=== PATIENT | female | born 1960 | race Caucasian/White ===

== ENCOUNTER 2016-12-21 03:53 | Inpatient (IN) | payer OTHER ==
[2016-12-21] VITALS (22 sets, daily range): BP systolic 66–151; BP diastolic 39–98; PULSE 66–118; RESP 12–25; TEMP 98.1–99; O2SAT 93–100
[~2016-12-21] VITALS: Ht 160 cm; Wt 70.1 kg
[2016-12-21] MEDS ORDERED: SUBO2MIS SL (04:18)
[2016-12-21] MEDS ORDERED: LISI-515 PO (04:18)
[2016-12-21] MEDS ORDERED: SODIUM CHLOR 0.9% 1000 ML INJ 1,000 ML IV ONE ×2 (04:30→04:45)
--- NOTE | 2016-12-21 04:39 | PD ---
HPI Chief Complaint: Chest Pain Time Seen by Provider: 04:21 Travel History International Travel<30 days: No Contact w/Intl Traveler<30days: No Traveled to known affect area: No History of Present Illness HPI The patient is a 56 year old female who presents to the [facility] emergency department with a history of reportedly feeling ill over the last 2 days since she ran out of Suboxone. She reports that she went to her doctor yesterday in the daytime and was given a refill. She reports that she started back on her first tablet yesterday. She reports that she had generalized body aches prior to this and nausea with decreased by mouth intake. She denies having any vomiting. She reports that she's been constipated. She reports that she did have a very hard stool that was painful yesterday. She denies having any known blood in her stool or black or tarry stools. She reports that she does drink alcohol on a daily basis, 2 glasses of wine per day. She reports that prior to arrival she began to have generalized abdominal pain and chest pain. Upon ambulance services arrival the patient's blood pressure was noted to be low, 60s over 40s. The patient was given 400 mL of normal saline en route to this facility and her blood pressure came up to 137/94. The patient reports that she does have a history of hypertension and is on lisinopril. Ambulance services reportedly gave her Zofran 4 mg IV prior to arrival for nausea. On review of systems, the patient denies having any known fevers, however she has had chills. She denies having any recent cough, congestion, neck pain, urinary symptoms, or neurologic symptoms. [facility] Past Medical History Narrative Medical The patient's past medical history is significant for hypertension, prior history of opiate abuse, currently on Suboxone for the last 6 years, history of daily alcohol intake. Diminished Hearing: No Hypertension: Yes Tetanus Vaccination: Unknown Influenza Vaccination: No Past Surgical History Narrative Surgical The patient's past surgical history is significant for an appendectomy, C- section, hernia repair. Appendectomy: Yes Section: Yes (X1) Social History Alcohol Use: Yes (DAILY, HAD "A COUPLE GLASSES" OF WINE TONIGHT) Tobacco Use: No Substance Use: No Allergies-Medications (Allergen,Severity, Reaction): Coded Allergies: No Known Allergies (Unverified , 12/21/16) Reported Meds & Prescriptions Reported Meds & Active Scripts Active Reported Lisinopril 20 Mg Tab 20 Mg PO DAILY Suboxone Sublingual Film (Buprenorphine-Naloxone Sublingual Film) 2-0.5 Mg Film 1 Film SL Unique ID number required: Review of Systems Except as stated in HPI: all other systems reviewed are Neg General / Constitutional: No: Fever Eyes: No: Visual changes HENT: No: Headaches Cardiovascular: Positive: Chest Pain or Discomfort Respiratory: No: Shortness of Breath Gastrointestinal: Positive: Nausea, Abdominal Pain, Constipation, Changes in Bowel Habits, Loss of Appetite, No: Vomiting, Diarrhea, Hematemesis, Hematochezia Genitourinary: No: Dysuria Musculoskeletal: No: Pain Skin: No Rash Neurologic: No: Weakness Psychiatric: No: Depression Endocrine: No: Polydipsia Hematologic/Lymphatic: No: Easy Bruising Physical Exam Narrative General: The patient is a well-developed well-nourished female, uncomfortable appearing on arrival reporting generalized abdominal pain. Head and Neck exam: Head is normocephalic atraumatic. Eyes: EOMI, pupils are equal round and reactive to light. Nose: Midline septum with pink mucous membranes Mouth: Dentition unremarkable. Moist mucus membranes. Posterior oropharynx is not erythematous. No tonsillar hypertrophy. Uvula midline. Airway patent. Neck: No palpable lymphadenopathy. No nuchal rigidity. No thyromegaly. Cardiovascular: Sinus tachycardia in the low 100 without murmurs, gallops, or rubs. No pulse deficit to the extremities and simultaneous auscultation and palpation of the radial artery. Lungs: Clear to auscultation bilaterally. No wheezes, rhonchi, or rales. Abdomen: Soft, with mild distention and tenderness on palpation along the suprapubic and left lower quadrant of the abdomen. No other tenderness on palpation of the other quadrants of the abdomen. No guarding, rebound, or rigidity. Decreased bowel sounds are audible. No tenderness on palpation of McBurney's point. Negative Slater sign. Extremities: No clubbing, cyanosis, or edema. 2+ pulses in all 4 extremities. No calf tenderness on palpation. Back: No spinous process tenderness to palpation. No costovertebral angle tenderness to palpation. Neurologic Exam: Grossly nonfocal. Skin Exam: No rash noted. Intact skin that is warm and dry. Data Data Last Documented VS Vital Signs Date Time Temp Pulse Resp B/P Pulse Ox O2 Delivery O2 Flow Rate FiO2 12/21/16 06:00 118 14 118/76 97 Nasal Cannula 2 12/21/16 03:55 98.1 Orders Electrocardiogram (12/21/16 04:22) Complete Blood Count With Diff (12/21/16 04:22) Comprehensive Metabolic Panel (12/21/16 04:22) Creatine Kinase (Cpk) (12/21/16 04:22) Ckmb (Isoenzyme) Profile (12/21/16 04:22) Troponin I (12/21/16 04:22) B-Type Natriuretic Peptide (12/21/16 04:22) Prothrombin Time / Inr (Pt) (12/21/16:22) Act Partial Throm Time (Ptt) (12/21/16 04:22) Blood Culture (12/21/16 04:22) C-Reactive Protein (Crp) (12/21/16 04:22) Lipase (12/21/16 04:22) Urinalysis - C+S If Indicated (12/21/16 04:22) Magnesium (Mg) (12/21/16 04:22) Thyroid Stimulating Hormone (12/21/16 04:22) Ct Abd/Pel W Iv Contrast(Rout) (12/21/16 04:22) Iv Access Insert/Monitor (12/21/16 04:22) Ecg Monitoring (12/21/16 04:22) Oximetry (12/21/16 04:22) Ed Urine Pregnancytest Poc (12/21/16 04:22) Drug Screen, Random Urine (12/21/16 04:22) Alcohol (Ethanol) (12/21/16 04:22) Lactic Acid Sepsis Protocol (12/21/16 04:22) Chest, Single Ap (12/21/16 04:22) Sodium Chlor 0.9% 1000 Ml Inj (Ns 1000 M (12/21/16 04:30) Sodium Chlor 0.9% 1000 Ml Inj (Ns 1000 M (12/21/16 04:45) Ondansetron Inj (Zofran Inj) (12/21/16 05:15) Ondansetron Inj (Zofran Inj) (12/21/16 05:03) CKMB (12/21/16 04:30) CKMB% (12/21/16 04:30) Potassium Chloride Eff (K-Lyte Cl Eff) (12/21/16 05:45) Thiamine Inj (Thiamine Inj) (12/21/16 05:45) Ns + Kcl 20 Meq Inj (Ns + Kcl 20 Meq Inj (12/21/16 05:45) Magnesium Sulfate 1 Gm Premix (Magnesium (12/21/16 05:45) Urinary Catheter Insert/Apply (12/21/16 05:40) Iohexol 350 Inj (Omnipaque 350 Inj) (12/21/16 05:55) Vancomycin Inj (Vancomycin Inj) (12/21/16 06:30) Piperacil-Tazo 3.375 Gm Premix (Zosyn 3. (12/21/16 06:30) Potassium Chlor 20 Meq Premix (Kcl 20 Me (12/21/16 06:30) Sodium Chlorid 0.9% 500 Ml Inj (Ns 500 M (12/21/16 06:30) Admit Order (Ed Use Only) (12/21/16 06:35) Labs Laboratory Tests Test 12/21/16 12/21/16 04:30 04:50 White Blood Count 6.4 TH/MM3 Red Blood Count 3.73 MIL/MM3 Hemoglobin 13.2 GM/DL Hematocrit 39.7 % Mean Corpuscular Volume 106.5 FL Mean Corpuscular Hemoglobin 35.3 PG Mean Corpuscular Hemoglobin 33.2 % Concent Red Cell Distribution Width 15.4 % Platelet Count 133 TH/MM3 Mean Platelet Volume 7.2 FL Neutrophils (%) (Auto) 78.2 % Lymphocytes (%) (Auto) 19.3 % Monocytes (%) (Auto) 2.3 % Eosinophils (%) (Auto) 0.1 % Basophils (%) (Auto) 0.1 % Neutrophils # (Auto) 5.0 TH/MM3 Lymphocytes # (Auto) 1.2 TH/MM3 Monocytes # (Auto) 0.1 TH/MM3 Eosinophils # (Auto) 0.0 TH/MM3 Basophils # (Auto) 0.0 TH/MM3 CBC Comment DIFF FINAL Differential Comment Prothrombin Time 10.7 SEC Prothromb Time International 1.0 RATIO Ratio Activated Partial 19.5 SEC Thromboplast Time Sodium Level 146 MEQ/L Potassium Level 2.9 MEQ/L Chloride Level 106 MEQ/L Carbon Dioxide Level 24.8 MEQ/L Anion Gap 15 MEQ/L Blood Urea Nitrogen 11 MG/DL Creatinine 0.83 MG/DL Estimat Glomerular Filtration 71 ML/MIN Rate Random Glucose 171 MG/DL Lactic Acid Level 4.4 mmol/L Calcium Level 8.6 MG/DL Magnesium Level 2.1 MG/DL Total Bilirubin 1.3 MG/DL Aspartate Amino Transf 149 U/L (AST/SGOT) Alanine Aminotransferase 89 U/L (ALT/SGPT) Alkaline Phosphatase 75 U/L Total Creatine Kinase 156 U/L Creatine Kinase MB 2.6 NG/ML Troponin I LESS THAN 0.02 NG/ML C-Reactive Protein 0.31 MG/DL B-Type Natriuretic Peptide 30 PG/ML Total Protein 6.7 GM/DL Albumin 3.3 GM/DL Lipase 253 U/L Thyroid Stimulating Hormone 1.460 uIU/ML 3rd Gen Ethyl Alcohol Level 319 MG/DL Urine Color YELLOW Urine Turbidity CLEAR Urine pH 5.5 Urine Specific Seymour 1.017 Urine Protein 100 mg/dL Urine Glucose (UA) NEG mg/dL Urine Ketones NEG mg/dL Urine Occult Blood TRACE Urine Nitrite NEG Urine Bilirubin NEG Urine Urobilinogen 2.0 MG/DL Urine Leukocyte Esterase NEG Urine RBC LESS THAN 1 /hpf Urine WBC 1 /hpf Urine Squamous Epithelial <1 /hpf Cells Urine Bacteria FEW /hpf Urine Hyaline Casts 4 /lpf Urine Mucus FEW /lpf Microscopic Urinalysis Comment CULT NOT INDICATED Urine Opiates Screen NEG Urine Barbiturates Screen NEG Urine Amphetamines Screen NEG Urine Benzodiazepines Screen NEG Urine Cocaine Screen NEG Urine Cannabinoids Screen NEG MDM Medical Decision Making Medical Screen Exam Complete: Yes Emergency Medical Condition: Yes Medical Record Reviewed: Yes Interpretation(s) Last Impressions Chest X-Ray 12/21/16421 Signed Impressions: Service Date/Time: Wednesday, December 21, 2016 04:21 - CONCLUSION: No evidence of acute cardiopulmonary disease. Van Mondragon MD Abdomen/Pelvis CT 12/21/16421 Signed Impressions: Service Date/Time: Wednesday, December 21, 2016 05:42 - CONCLUSION: 1. Nonspecific mild long segment colitis. No abscess or obstruction. 2. Fatty liver. Van Mondragon MD Differential Diagnosis Ischemic bowel, versus perforated bowel, versus perforated ulcer, versus sepsis , versus GI bleed Narrative Course During the course of the patients emergency department visit, the patients history, examination, and differential diagnosis were reviewed with the patient. The patient had 2 large-bore IV[address] place and bilateral upper extremities. The patient was started on normal saline wide open when her blood pressure again dropped to 69/40. The patient had an ECG done on arrival that shows a sinus tachycardia rate of 104, no acute ST segment elevation or depression, QRS duration is 99 ms, QTC 453 ms. The patients laboratory studies were reviewed and remarkable for white count is 6.4, hemoglobin 13.2, platelets 133 with 78.2 neutrophils, CMP is remarkable for sodium of 146, potassium 2.9 which was attempted to be supplemented orally, however the patient used to drink the K-Lyte after tasting it, therefore she was given 20 mEq over 2 hours. The patient was additionally after 2 L of normal saline was administered wide open given normal saline at 125 an hour with 20 mEq of potassium chloride for supplementation. Glucose 171, total bilirubin 1.3, AST 149, ALT 89 this is a pattern suspicious for chronic alcohol- related hepatitis, CPK 156, troponin I less than 0.02, C-reactive protein 0.31, BNP is 30, lipase 253, TSH 1.46. Lactic acid is 4.4 this is suspected to be related to dehydration versus sepsis of undetermined origin, versus ischemic bowel, PT 10.7, PTT 19.5. Urine drug screen is negative, alcohol level CCCXIX. Urinalysis shows 100 protein, trace occult blood, few squamous epithelial cells, otherwise unremarkable Radiology studies were reviewed and remarkable for the chest x-ray that shows no acute abnormality. CT scan of the abdomen and pelvis shows a nonspecific mild long segment colitis, no abscess or obstruction, fatty liver. The patients results were discussed with the patient, including the plan of care. I explained that further testing and/ or monitoring is indicated based on the patients history, examination, and/ or laboratory findings. Therefore, I recommended admission for additional evaluation. The patient expressed understanding and was agreeable with this plan. The patient was admitted to the hospital in guarded condition and sent to a bed under the care of the snake charmer service. Critical Care Narrative Aggregate critical care time was 40 minutes. Time to perform other separately billable procedures was not included in the critical care time. My time did not include minutes spent treating any other patients simultaneously or on activities that did not directly contribute to the patient's treatment. The services I provided to this patient were to treat and/or prevent clinically significant deterioration that could result in: Respiratory failure related to fluid overload, versus cardiovascular collapse related to sepsis I provided critical care services requiring my management, as noted below: Chart data review, documentation time, medication orders and management, vital sign assessments/reviewing monitor data, ordering and reviewing lab tests, ordering and interpreting/reviewing x-rays and diagnostic studies, care of the patient and discussion of the patient with the admitting physicians. Sepsis Criteria SIRS Criteria (2 or more): Heart rate over 90, RR > 20 or PaCO2 < 32 Severe Sepsis (+one): Lactate >2 Septic Shock Criteria: Lactic acid >=4 Physician Communication Physician Communication The patient's case was discussed with Dr. Casey who did agree to admit the patient for further evaluation and treatment at this time. Diagnosis Primary Impression: Colitis Additional Impression: Hypotension Qualified Code: I95.9 - Hypotension, unspecified hypotension type Admitting Information Admitting Physician Requests: Admit Bertha Glass MD Dec 21, 2016 04:39
[2016-12-21 04:57] LABS: BASOPHIL % 0.1 % (0.0-2.0); EOSINOPHIL % 0.1 % (0.0-4.0); HEMATOCRIT 39.7 % (35.0-46.0); HEMO FLAGS DIFF FINAL; LYMPH % 19.3 % (9.0-44.0); LYMPHOCYTE # 1.2 TH/MM3 (1.0-4.8); MEAN CELL VOLUME 106.5 FL (80.0-100.0); MEAN CORPUSCULAR HEMOGLOBIN 35.3 PG (27.0-34.0); MEAN CORPUSCULAR HGB CONC 33.2 % (32.0-36.0); MONO % 2.3 % (0.0-8.0); NEUT % 78.2 % (16.0-70.0); PLATELET COUNT 133 TH/MM3 (150-450); RED BLOOD COUNT 3.73 MIL/MM3 (4.00-5.30); RED CELL DISTRIBUTION WIDTH 15.4 % (11.6-17.2); WHITE BLOOD COUNT 6.4 TH/MM3 (4.0-11.0)
--- NOTE | 2016-12-21 05:02 | RADRPT ---
EXAM DATE/TIME: 12/21/2016 04:21 [facility] COMPARISON: No previous studies available for comparison. INDICATIONS : Chest pain. MEDICAL HISTORY : None. SURGICAL HISTORY : None. ENCOUNTER: Initial ACUITY: 1 day PAIN SCORE: 0/10 LOCATION: Bilateral chest FINDINGS: A single view of the chest demonstrates the lungs to be symmetrically aerated without evidence of mas s, infiltrate or effusion. The cardiomediastinal contours are unremarkable. Osseous structures are intact. CONCLUSION: No evidence of acute cardiopulmonary disease. Van Mondragon MD on December 21, 2016 at 5:01 Board Certified Radiologist. This report was verified electronically.
[2016-12-21] MEDS ORDERED: ONDANSETRON HCL 4 MG/2 ML VIAL ONE (05:03)
[2016-12-21] MEDS ORDERED: ONDANSETRON HCL 4 MG/2 ML VIAL IV ONE (05:15)
[2016-12-21 05:20] LABS: APTT (PATIENT) 19.5 SEC (24.3-30.1); PROTHROMBIN TIME - PATIENT 10.7 SEC (9.8-11.6)
[2016-12-21 05:27] LABS: ALKALINE PHOSPHATASE 75 U/L (45-117); ALT (GPT) 89 U/L (10-53); ANION GAP 15 MEQ/L (5-15); AST (GOT) 149 U/L (15-37); BICARBONATE 24.8 MEQ/L (21.0-32.0); BLOOD UREA NITROGEN 11 MG/DL (7-18); CHLORIDE 106 MEQ/L (98-107); CREATINE KINASE 156 U/L (26-192); GLOMERULAR FILTRATION RATE 71 ML/MIN (>89); MAGNESIUM 2.1 MG/DL (1.5-2.5); SODIUM (NA) 146 MEQ/L (136-145); TOTAL BILIRUBIN ADULT 1.3 MG/DL (0.2-1.0)
[2016-12-21 05:31] LABS: POTASSIUM 2.9 MEQ/L (3.5-5.1)
[2016-12-21 05:44] LABS: CKMB 2.6 NG/ML (0.5-3.6)
[2016-12-21 05:45] LABS: AMPHETAMINE, URINE NEG (NEG); BARBITURATES, URINE NEG (NEG); COCAINE, URINE NEG (NEG)
[2016-12-21] MEDS ORDERED: THIAMINE INJ 100 MG in SODIUM CHLORIDE 0.9% INJ 100 ML IV ONE (05:45)
[2016-12-21] MEDS ORDERED: POTASSIUM CHLORIDE 25 MEQ EFFERVESCENT TAB PO ONE (05:45)
[2016-12-21] MEDS ORDERED: MAGNESIUM SULFATE 1 GM PREMIX 100 ML IV ONE (05:45)
[2016-12-21 05:50] LABS: BACTERIA, URINE FEW /hpf; BLOOD, URINE TRACE (NEG); COMMENT (UR) CULT NOT INDICATED; CULTURE IF INDICATED CULT NOT INDICATED; GLUCOSE,URINE NEG (NEG); HYALINE CAST, URINE 4 /lpf (RARE); KETONE, URINE NEG (NEG); MUCUS URINE FEW /lpf (OCC); NITRITE,URINE NEG (NEG); PH, URINE 5.5 (5.0-8.5); SQUAMOUS EPITHELIAL CELL URINE <1 /hpf (0-5); URINE COLOR YELLOW (YELLW/STRAW)
[2016-12-21] MEDS ORDERED: IOHEXOL 350 MG/ML 10 ML VIAL (for RAD DIAG) IV ONE (05:55)
[2016-12-21] MEDS: NS + KCL 20 MEQ INJ 1,000 ML IV SCH ×3 (06:01→21:13)
--- NOTE | 2016-12-21 06:17 | RADRPT ---
EXAM DATE/TIME: 12/21/2016 05:42 [facility] COMPARISON: No previous studies available for comparison. INDICATIONS : Abdomen pain. Possible obstruction. IV CONTRAST: 70 cc Omnipaque 350 (iohexol) IV ORAL CONTRAST: No oral contrast ingested. RADIATION DOSE: 9.95 CTDIvol (mGy) MEDICAL HISTORY : Hypertension. SURGICAL HISTORY : Appendectomy. section. ENCOUNTER: Initial ACUITY: 1 day PAIN SCALE: 10/10 LOCATION: Bilateral abdomen TECHNIQUE: Volumetric scanning of the abdomen and pelvis was performed. Using automated exposure control and ad justment of the mA and/or kV according to patient size, radiation dose was kept as low as reasonably achievable to obtain optimal diagnostic quality images. DICOM format image data is available electro nically for review and comparison. FINDINGS: LOWER LUNGS: Trace right base atelectasis noted. LIVER: The liver is fatty infiltrated. CT appearance of the gallbladder within normal limits. SPLEEN: Normal size without lesion. PANCREAS: Within normal limits. KIDNEYS: Normal in size and shape. There is no mass, stone or hydronephrosis. ADRENAL GLANDS: Within normal limits. VASCULAR: There is no aortic aneurysm. BOWEL/MESENTERY: There is mild colitis, spares the rectum but otherwise diffuse. No obstruction or high-grade inflamma tory changes are demonstrated. ABDOMINAL WALL: Within normal limits. RETROPERITONEUM: There is no lymphadenopathy. BLADDER: No wall thickening or mass. REPRODUCTIVE: Within normal limits. INGUINAL: There is no lymphadenopathy or hernia. MUSCULOSKELETAL: No acute bony abnormality demonstrated. CONCLUSION: 1. Nonspecific mild long segment colitis. No abscess or obstruction. 2. Fatty liver. Van Mondragon MD on December 21, 2016 at 6:13 Board Certified Radiologist. This report was verified electronically.
[2016-12-21] MEDS ORDERED: VANCOMYCIN INJ 1,000 MG in SODIUM CHLOR 0.9% 250 ML INJ 250 ML IV ONE (06:30)
[2016-12-21] MEDS ORDERED: POTASSIUM CHLOR 20 MEQ PREMIX 100 ML IV ONE (06:30)
[2016-12-21] MEDS ORDERED: SODIUM CHLORID 0.9% 500 ML INJ 500 ML IV ONE (06:30)
[2016-12-21] MEDS ORDERED: PIPERACIL-TAZO 3.375 GM PREMIX 50 ML IV ONE (06:30)
[2016-12-21 06:38] LABS: LACTIC ACID GHOST NOT REPORTABLE
[2016-12-21] MEDS ORDERED: LACTATED RINGER'S 1000 ML INJ 1,000 ML IV ONE ×2 (06:45→10:30)
[2016-12-21] MEDS ORDERED: SODIUM PHOSPHATE INJ 30 MMOL in SODIUM CHLOR 0.9% 250 ML INJ 240 ML IV PRN (06:45)
[2016-12-21] MEDS ORDERED: POTASSIUM PHOSPHATE MONOBASIC 500 MG TAB PO/TUBE PRN (06:45)
[2016-12-21] MEDS ORDERED: DEXTROSE 50% IN WATER 50 ML VIAL(D50) IV PUSH PRN (06:45)
[2016-12-21] MEDS ORDERED: MAGNESIUM OXIDE 400 MG TAB PO PRN (06:45)
[2016-12-21] MEDS ORDERED: MISCELLANEOUS NURSING INFORMATION XX SCH (06:45)
[2016-12-21] MEDS ORDERED: POTASSIUM CHLOR 20 MEQ PREMIX 100 ML IV PRN ×2 (06:45)
[2016-12-21] MEDS ORDERED: MAGNESIUM SULFATE INJ 4 GM in SODIUM CHLORIDE 0.9% INJ 92 ML IV PRN (06:45)
[2016-12-21] MEDS ORDERED: CHLORHEXIDINE GLUCONATE 2 % 1 PACK (2 CLOTHS) TOP PRN (06:45)
[2016-12-21] MEDS ORDERED: MAGNESIUM SULFATE INJ 2 GM in SODIUM CHLORIDE 0.9% INJ 96 ML IV PRN (06:45)
[2016-12-21] MEDS ORDERED: Vancomycin Consult Pharmacy 1 EA OTHER PRN (06:45)
[2016-12-21] MEDS ORDERED: POTASSIUM CHLOR 40 MEQ PREMIX 100 ML IV PRN ×2 (06:45)
[2016-12-21] MEDS ORDERED: POTASSIUM PHOSPHATE INJ 30 MMOL in SODIUM CHLOR 0.9% 250 ML INJ 250 ML IV PRN (06:45)
[2016-12-21] MEDS ORDERED: POTASSIUM PHOSPHATE MONOBASIC 500 MG TAB PO PRN (06:45)
[2016-12-21] MEDS ORDERED: RESP: ALBUTEROL 2.5 MG/IPRATROPIUM 0.5 MG NEB (PRN) INH (06:45)
[2016-12-21] MEDS: ONDANSETRON HCL 4 MG/2 ML VIAL IV PRN (08:05)
[2016-12-21] MEDS: HEPARIN SODIUM - SQ 10,000 UNITS/ML VIAL SQ SCH ×2 (08:50→18:02)
[2016-12-21] MEDS ORDERED: PANTOPRAZOLE SODIUM 40 MG VIAL IV SCH (09:00)
--- NOTE | 2016-12-21 09:51 | EKG ---
Date Performed: 12/21/2016 Time Performed: 04:03:37 PTAGE: 56 years EKG: SINUS TACHYCARDIA ABNORMAL RHYTHM ECG NO PREVIOUS TRACING DOCTOR: Ehsan Glass Interpretating Date/Time 12/21/2016 09:48:16
[2016-12-21] MEDS ORDERED: LORazepam 2 MG/ML VIAL IV PUSH ONE (10:30)
[2016-12-21] MEDS ORDERED: DIAZEPAM 10 MG TAB PO SCH (10:30)
[2016-12-21] MEDS: DIAZEPAM 10 MG TAB PO SCH ×2 (11:00→18:02)
[2016-12-21] MEDS: cloNIDine HCL 0.3 MG TAB PO SCH ×2 (11:14→18:02)
[2016-12-21] MEDS: INSULIN NovoLIN REGULAR SUPPLEMENTAL SCALE SQ SCH ×2 (12:00→18:00)
[2016-12-21] MEDS: metroNIDAZOLE 500 MG INJ 100 ML IV SCH ×2 (13:33→19:51)
[2016-12-21] MEDS: CEFEPIME INJ 1,000 MG in SODIUM CHLORIDE 0.9% INJ 100 ML IV SCH ×2 (13:34→22:44)
[2016-12-21] MEDS: LORazepam 2 MG/ML VIAL IV PUSH PRN ×2 (19:51→22:44)
[2016-12-21] MEDS: oxyCODONE/ACETAMINOPHEN 5 MG/325 MG TAB PO PRN (19:56)
[2016-12-21] MEDS ORDERED: MULTIVITAMIN INJ 10 ML, THIAMINE INJ 100 MG, FOLIC ACID INJ 1 MG in SODIUM CHLOR 0.45% ... IV ONE (20:45)
--- NOTE | 2016-12-21 21:00 | HHI.HP ---
[facility] Service Critical Care Medicine Primary Care Physician Non-Staff Admission Diagnosis Colitis, hypotension, alcohol intoxication Diagnosis: Chief Complaint: nausea, vomiting Travel History International Travel<30 Days: No Contact w/Intl Traveler <30 Da: No Traveled to Known Affected Are: No History of Present Illness Note: delayed note entry into EMR. patient seen and evaluated at 0700 this AM. This is a 56-year-old female who presented with a history of worsening chills, diarrhea, abdominal pain, shaking, tremors after she ran out of her Suboxone 2 days ago. She states she can't keep anything down. She does endorse having number of glasses of wine last night. Her alcohol level on admission is 319. She describes her abdominal pain is crampy, denies associated with food. Denies bright red blood per rectum, dark tarry stools, coughing up blood, vomiting of blood. She does endorse some nausea and vomiting. She endorses drinking at least 2 glasses of wine every day. She was brought in by EMS where her initial blood pressure was in the low 60s systolic. The patient was given 400 cc of normal saline where her blood pressure improved to 137/94. In the emergency department, she remained hemodynamic stable. CT of the abdomen and pelvis demonstrated question colitis. Although she endorse having diarrhea, she 's had no bowel movements while in the emergency department. I've out of the patient and she denied chest pain, shortness of breath, other associated symptoms. She did tell me that her abdominal pain and all of her symptoms feel exactly like what she feels like when she has alcohol and opiate withdrawal. She asked me if I can provide her with benzos and opiates to help with symptomatic relief. She does state that she has an appointment with an inpatient detox center to get her off these medications, and she is interested in going to the detox center straight from the hospital if possible. She denies fever, chills. She is remained afebrile with normal white count and the emergency department. Other laboratory values is notable for a lactate of 4. Review of Systems Constitutional: DENIES: Fatigue, Fever, Weight loss, Chills, Dizziness, Night Sweats Respiratory: DENIES: Cough, Wheezing, Hemoptysis, Sputum production, Shortness of breath Cardiovascular: DENIES: Chest pain, Palpitations, Syncope, Dyspnea on Exertion , PND, Lower Extremity Edema, Orthopnea Gastrointestinal: COMPLAINS OF: Abdominal pain, Constipation, Diarrhea, Nausea , Vomiting, DENIES: Black stools, Bloody stools, Difficulty Swallowing, Anorexia Musculoskeletal: DENIES: Joint pain, Muscle aches, Back pain, Neck pain Neurologic: COMPLAINS OF: Tremor, DENIES: Abnormal gait, Headache, Localized weakness, Seizures Psychiatric: COMPLAINS OF: Anxiety, Agitation, DENIES: Confusion, Mood changes , Depression Past Family Social History Allergies: Coded Allergies: No Known Allergies (Unverified , 12/21/16) Past Medical History Hypertension History of significant opiate abuse on chronic Suboxone maintenance therapy for 6 years Alcohol dependence Past Surgical History Appendectomy Hernia repair Reported Medications Lisinopril Suboxone- ran out a 3 days ago. Active Ordered Medications See MAR Family History Reviewed with the patient and found to be noncontributory to her acute illness. Social History Daily etoh use, primarily wine, denies tob. endorses daily suboxone use. Physical Exam Vital Signs Vital Signs Date Time Temp Pulse Resp B/P Pulse Ox O2 Delivery O2 Flow Rate FiO2 12/21/16 19:20 93 Nasal Cannula 3.00 12/21/16 19:03 16 12/21/16 18:00 73 12/21/16 16:00 98.9 75 12 138/86 94 12/21/16 16:00 75 12/21/16 14:00 92 12/21/16 12:06 94 Nasal Cannula 2.00 12/21/16 12:00 98.9 95 13 144/94 94 12/21/16 12:00 95 12/21/16 10:30 99.0 102 15 151/98 94 12/21/16 09:40 98 18 150/80 98 12/21/16 08:00 108 15 121/83 98 Nasal Cannula 2 12/21/16 07:30 98 Nasal Cannula 2 12/21/16 07:15 117 25 113/77 98 Nasal Cannula 2 12/21/16 06:45 115 21 117/78 100 Nasal Cannula 2 12/21/16 06:00 118 14 118/76 97 Nasal Cannula 2 12/21/16 05:30 111 19 102/69 97 Nasal Cannula 2 12/21/16 05:09 109 20 105/64 96 Nasal Cannula 12/21/16 04:45 106 19 92/49 97 Room Air 12/21/16 04:30 102 24 72/54 96 Room Air 12/21/16 04:15 108 21 66/39 94 Room Air 12/21/16 04:06 104 14 95 Room Air 12/21/16 03:55 98.1 108 14 87/56 95 Physical Exam GENERAL: Middle-aged female, sitting in bed, anxious, tremulous HEENT: Normocephalic. Atraumatic. Pupils equal, round, reactive, conjugate. Mucous membranes are dry NECK: Trachea is midline. There is no JVD. CHEST: Mildly tachypneic. On room air. CARDIOVASCULAR: Cardiac, hypertensive on my exam ABDOMEN: Soft, nontender, nondistended. No guarding. MUSCULOSKELETAL: Pulses 2+. No peripheral edema. NEUROLOGICAL: Very agitated. RASS +1. Anxious. Noted tremor at rest. Follows commands in all 4 extremities. Laboratory Laboratory Tests Test 12/21/16 12/21/16 12/21/16 12/21/16 04:30 04:50 06:40 15:25 White Blood Count 6.4 Red Blood Count 3.73 Hemoglobin 13.2 Hematocrit 39.7 Mean Corpuscular Volume 106.5 Mean Corpuscular Hemoglobin 35.3 Mean Corpuscular Hemoglobin 33.2 Concent Red Cell Distribution Width 15.4 Platelet Count 133 Mean Platelet Volume 7.2 Neutrophils (%) (Auto) 78.2 Lymphocytes (%) (Auto) 19.3 Monocytes (%) (Auto) 2.3 Eosinophils (%) (Auto) 0.1 Basophils (%) (Auto) 0.1 Neutrophils # (Auto) 5.0 Lymphocytes # (Auto) 1.2 Monocytes # (Auto) 0.1 Eosinophils # (Auto) 0.0 Basophils # (Auto) 0.0 CBC Comment DIFF FINAL Differential Comment Prothrombin Time 10.7 Prothromb Time International 1.0 Ratio Activated Partial 19.5 Thromboplast Time Sodium Level 146 Potassium Level 2.9 Chloride Level 106 Carbon Dioxide Level 24.8 Anion Gap 15 Blood Urea Nitrogen 11 Creatinine 0.83 Estimat Glomerular Filtration 71 Rate Random Glucose 171 Lactic Acid Level 4.4 3.0 0.9 Calcium Level 8.6 Magnesium Level 2.1 Total Bilirubin 1.3 Aspartate Amino Transf 149 (AST/SGOT) Alanine Aminotransferase 89 (ALT/SGPT) Alkaline Phosphatase 75 Total Creatine Kinase 156 Creatine Kinase MB 2.6 Troponin I LESS THAN 0.02 C-Reactive Protein 0.31 B-Type Natriuretic Peptide 30 Total Protein 6.7 Albumin 3.3 Lipase 253 Thyroid Stimulating Hormone 1.460 3rd Gen Ethyl Alcohol Level 319 Urine Color YELLOW Urine Turbidity CLEAR Urine pH 5.5 Urine Specific [place] 1.017 Urine Protein 100 Urine Glucose (UA) NEG Urine Ketones NEG Urine Occult Blood TRACE Urine Nitrite NEG Urine Bilirubin NEG Urine Urobilinogen 2.0 Urine Leukocyte Esterase NEG Urine RBC LESS THAN 1 Urine WBC 1 Urine Squamous Epithelial <1 Cells Urine Bacteria FEW Urine Hyaline Casts 4 Urine Mucus FEW Microscopic Urinalysis Comment CULT NOT INDICATED Urine Opiates Screen NEG Urine Barbiturates Screen NEG Urine Amphetamines Screen NEG Urine Benzodiazepines Screen NEG Urine Cocaine Screen NEG Urine Cannabinoids Screen NEG Date/Time Procedure Status Source Growth 12/21/16 04:30 Aerobic Blood Culture Received Blood Peripheral Pending 12/21/16 04:30 Anaerobic Blood Culture Received Blood Peripheral Pending Result Diagram: 12/21/1642912/21/16429 Imaging Last Impressions Chest X-Ray 12/21/16421 Signed Impressions: Service Date/Time: Wednesday, December 21, 2016 04:21 - CONCLUSION: No evidence of acute cardiopulmonary disease. Van Mondragon MD Abdomen/Pelvis CT 12/21/16421 Signed Impressions: Service Date/Time: Wednesday, December 21, 2016 05:42 - CONCLUSION: 1. Nonspecific mild long segment colitis. No abscess or obstruction. 2. Fatty liver. Van Mondragon MD Assessment and Plan Assessment and Plan Assessment: 56-year-old female with opiate dependence and alcohol dependence who presents in what appears clinically to be active opiate withdrawal and active alcohol withdrawal with delirium tremens. Certainly she could have an ulcerative colitis, we will cover her empirically with antibiotics until the concern for bacterial colitis can be ruled out. We will send C. difficile PCR. If she remains stable, she could go to a detox center in the near future. For now, given her lactic acidosis we will IV hydrate her and keep her in ICU setting for close monitoring. Plan: Severe dehydration with evidence of end-organ damage Hypovolemic Shock -- trend lactates -- 2L LR bolus x 1 now -- LR MIVF @ 150cc/hr -- likely secondary to chronic dehydration and etoh use Alcohol withdraw -- valium 10mg po q8h with taper schedule -- ativan 4mg iv x 1 -- ativan 2mg iv q15min prn for withdraw symptoms -- clonidine 0.3mg po TID Opiate Withdraw -- oxycodone 5mg po q4h scheduled Polysubstance dependence -- referral to detox facility Possible colitis -- with normal wbc count, afebrile, non-toxic appearing, unlikely, and much more likely to be substance withdraw. -- will cover with Vanc/Cefepime/Flagyl. If cultures negative at 24h, will d/c abx. regular diet as tolerated scds, SQH Dispo: admit to ICU for close monitoring s/p recent shock. Code Status Full Code Vikram Casey MD Dec 21, 2016 21:00
[2016-12-22] VITALS (14 sets, daily range): BP systolic 131–159; BP diastolic 84–110; PULSE 66–92; RESP 11–25; TEMP 97.9–98.7; O2SAT 86–96
[2016-12-22] MEDS: HEPARIN SODIUM - SQ 10,000 UNITS/ML VIAL SQ SCH ×3 (00:22→16:13)
[2016-12-22] MEDS: LORazepam 2 MG/ML VIAL IV PUSH PRN ×5 (00:47→19:46)
[2016-12-22] MEDS ORDERED: THIAMINE INJ 100 MG in SODIUM CHLORIDE 0.9% INJ 100 ML IV SCH (01:45)
[2016-12-22] MEDS: metroNIDAZOLE 500 MG INJ 100 ML IV SCH ×3 (01:58→13:47)
[2016-12-22] MEDS: cloNIDine HCL 0.3 MG TAB PO SCH ×3 (03:03→18:11)
[2016-12-22] MEDS: DIAZEPAM 10 MG TAB PO SCH ×3 (03:03→18:11)
[2016-12-22] MEDS: CHLORHEXIDINE GLUCONATE 2 % 1 PACK (2 CLOTHS) TOP SCH (03:04)
[2016-12-22 04:27] LABS: HEMATOCRIT 32.1 % (35.0-46.0); MEAN CELL VOLUME 107.7 FL (80.0-100.0); MEAN CORPUSCULAR HGB CONC 32.6 % (32.0-36.0); PLATELET COUNT 92 TH/MM3 (150-450); RED BLOOD COUNT 2.98 MIL/MM3 (4.00-5.30); RED CELL DISTRIBUTION WIDTH 15.1 % (11.6-17.2); WHITE BLOOD COUNT 4.7 TH/MM3 (4.0-11.0)
[2016-12-22 04:47] LABS: REVIEW FLAG FINAL
[2016-12-22 05:06] LABS: BICARBONATE 28.3 MEQ/L (21.0-32.0)
[2016-12-22] MEDS: NS + KCL 20 MEQ INJ 1,000 ML IV SCH (05:45)
[2016-12-22] MEDS: INSULIN NovoLIN REGULAR SUPPLEMENTAL SCALE SQ SCH ×4 (06:00→18:00)
[2016-12-22] MEDS: CEFEPIME INJ 1,000 MG in SODIUM CHLORIDE 0.9% INJ 100 ML IV SCH (06:07)
--- NOTE | 2016-12-22 14:58 | RADRPT ---
EXAM DATE/TIME: 12/22/2016 14:29 [facility] COMPARISON: CHEST SINGLE AP, December 21, 2016, 4:21. CT ABDOMEN & PELVIS W CONTRAST, December 21, 2016, 5:42. INDICATIONS : Short of breath. MEDICAL HISTORY : Hypertension. Renal calculi. SURGICAL HISTORY : section. Appendectomy. Right ankle. ENCOUNTER: ACUITY: 2 days PAIN SCORE: 0/10 LOCATION: chest FINDINGS: Mild bibasalar airspace disease, likely atelectasis. Mediastinal contours are stable. Remainder of e exam is unchanged. CONCLUSION: 1. Mild bibasilar airspace disease, likely atelectasis. Noam Romano MD on December 22, 2016 at 14:55 Board Certified Radiologist. This report was verified electronically.
[2016-12-22] MEDS ORDERED: FUROSEMIDE 20 MG/2 ML VIAL IV PUSH ONE ×2 (15:15→20:00)
--- NOTE | 2016-12-22 18:40 | HHI.CCPN ---
Subjective Remarks/Hospital Course Hospital Course: Note: delayed note entry into EMR. patient seen and evaluated at 0700 this AM. This is a 56-year-old female who presented with a history of worsening chills, diarrhea, abdominal pain, shaking, tremors after she ran out of her Suboxone 2 days ago. She states she can't keep anything down. She does endorse having number of glasses of wine last night. Her alcohol level on admission is 319. She describes her abdominal pain is crampy, denies associated with food. Denies bright red blood per rectum, dark tarry stools, coughing up blood, vomiting of blood. She does endorse some nausea and vomiting. She endorses drinking at least 2 glasses of wine every day. She was brought in by EMS where her initial blood pressure was in the low 60s systolic. The patient was given 400 cc of normal saline where her blood pressure improved to 137/94. In the emergency department, she remained hemodynamic stable. CT of the abdomen and pelvis demonstrated question colitis. Although she endorse having diarrhea, she 's had no bowel movements while in the emergency department. I've out of the patient and she denied chest pain, shortness of breath, other associated symptoms. She did tell me that her abdominal pain and all of her symptoms feel exactly like what she feels like when she has alcohol and opiate withdrawal. She asked me if I can provide her with benzos and opiates to help with symptomatic relief. She does state that she has an appointment with an inpatient detox center to get her off these medications, and she is interested in going to the detox center straight from the hospital if possible. She denies fever, chills. She is remained afebrile with normal white count and the emergency department. Other laboratory values is notable for a lactate of 4. Subjective: 12/22: delayed note entry. seen around 0700. patient doing well after starting on anti-withdraw meds. still persistently on o2 by NC. afebrile and normal wbc. unlikely to be colitis given constipation and no diarrhea or no abdominal symptoms today. patient is ready for detox if she can be weaned off o2. Objective Vital Signs Date Time Temp Pulse Resp B/P Pulse Ox O2 Delivery O2 Flow Rate FiO2 12/22/16 16:00 92 12/22/16 16:00 97.9 21 144/101 94 12/22/16 07:10 Nasal Cannula 2.00 Intake and Output 12/21/16 12/21/16 12/22/16 08:00 16:00 00:00 Intake Total 3268 ml 1500 ml Output Total 890 ml 1475 ml 150 ml Balance -890 ml 1793 ml 1350 ml Result Diagram: 12/22/16 0308 12/22/16 0308 Imaging Last Impressions Chest X-Ray 12/21/16421 Signed Impressions: Service Date/Time: Wednesday, December 21, 2016 04:21 - CONCLUSION: No evidence of acute cardiopulmonary disease. Van Mondragon MD Abdomen/Pelvis CT 12/21/16421 Signed Impressions: Service Date/Time: Wednesday, December 21, 2016 05:42 - CONCLUSION: 1. Nonspecific mild long segment colitis. No abscess or obstruction. 2. Fatty liver. Van Mondragon MD Objective Remarks GENERAL: Middle-aged female, sitting in bed, no acute distress. HEENT: Normocephalic. Atraumatic. Pupils equal, round, reactive, conjugate. Mucous membranes are moist. NECK: Trachea is midline. There is no JVD. CHEST: unlabored. equal chest rise. on 2L o2 by NC. CARDIOVASCULAR: normal rate, regular rhythm. sinus by tele. ABDOMEN: Soft, nontender, nondistended. No guarding. MUSCULOSKELETAL: Pulses 2+. No peripheral edema. NEUROLOGICAL: RASS 0. fc x 4. A/P Assessment and Plan Assessment: 56-year-old female with opiate dependence and alcohol dependence who presented in polysubstance withdraw. She is almost cleared for detox discharge, but need to evaluate and work-up her hypoxia. Plan: Severe dehydration with evidence of end-organ damage- resolved. Hypovolemic Shock- resolved. Hypoxia -- likely atelectasis vs. slight volume overload -- PA/Lat CXR -- lasix 20mg iv x 1 -- wean o2 by NC for spo2 > 90%. Alcohol withdraw -- valium 10mg po q8h with taper schedule -- ativan 2mg iv q15min prn for withdraw symptoms -- clonidine 0.3mg po TID Opiate Withdraw -- oxycodone 5mg po q4h scheduled Polysubstance dependence -- referral to detox facility. I have spoken with Dr. Sandoval and they will attempt to make a bed at [facility]. Possible colitis: unlikely. patient is without symptoms of colitis, no diarrhea or abdominal pain. no fever, leukocytosis. -- d/c abx. monitor clinically. regular diet as tolerated scds, SQH Dispo: transfer to floor. consult hospitalist services. Vikram Casey MD Dec 22, 2016 18:40
[2016-12-22] MEDS: THIAMINE INJ 100 MG in SODIUM CHLORIDE 0.9% INJ 100 ML IV SCH (19:46)
[2016-12-23] VITALS (12 sets, daily range): BP systolic 105–145; BP diastolic 80–101; PULSE 68–82; RESP 17–32; TEMP 98.2–98.9; O2SAT 83–96
[2016-12-23] MEDS: HEPARIN SODIUM - SQ 10,000 UNITS/ML VIAL SQ SCH ×4 (00:20→22:13)
[2016-12-23] MEDS: LORazepam 2 MG/ML VIAL IV PUSH PRN ×2 (00:20→03:25)
[2016-12-23] MEDS: DIAZEPAM 10 MG TAB PO SCH (03:13)
[2016-12-23] MEDS: CHLORHEXIDINE GLUCONATE 2 % 1 PACK (2 CLOTHS) TOP SCH ×2 (03:13→19:13)
[2016-12-23] MEDS: cloNIDine HCL 0.3 MG TAB PO SCH ×3 (03:13→19:25)
[2016-12-23 05:30] LABS: HEMATOCRIT 34.1 % (35.0-46.0); MEAN CELL VOLUME 105.3 FL (80.0-100.0); MEAN CORPUSCULAR HEMOGLOBIN 35.8 PG (27.0-34.0); PLATELET COUNT 99 TH/MM3 (150-450); RED BLOOD COUNT 3.24 MIL/MM3 (4.00-5.30); RED CELL DISTRIBUTION WIDTH 14.8 % (11.6-17.2)
[2016-12-23 05:42] LABS: REVIEW FLAG FINAL
[2016-12-23 05:48] LABS: BICARBONATE 27.5 MEQ/L (21.0-32.0); POTASSIUM 3.2 MEQ/L (3.5-5.1)
[2016-12-23] MEDS: INSULIN NovoLIN REGULAR SUPPLEMENTAL SCALE SQ SCH ×2 (05:54)
[2016-12-23 06:15] LABS: CALCIUM-PROTEIN CORRECTED 7.8 MG/DL (8.5-10.1)
[2016-12-23] MEDS: MULTIVITAMIN TAB PO SCH (08:44)
[2016-12-23] MEDS: oxyCODONE/ACETAMINOPHEN 5 MG/325 MG TAB PO PRN (08:45)
--- NOTE | 2016-12-23 08:48 | HHI.PR ---
Subjective Remarks in no acute distress. is complaining of some pain to the right arm. no sob. has mild generalized abdominal pain but with no diarrhea, emesis or fever. d/w the RN. Objective Vitals Vital Signs Date Time Temp Pulse Resp B/P Pulse Ox O2 Delivery O2 Flow Rate FiO2 12/23/16 08:00 98.9 76 23 139/94 90 12/23/16 08:00 76 12/23/16 06:00 76 20 127/87 83 12/23/16 06:00 76 12/23/16 04:01 80 12/23/16 04:01 98.4 80 24 139/101 88 12/23/16 02:01 80 18 145/101 91 12/23/16 02:00 79 12/23/16 00:00 98.5 75 20 139/92 90 12/23/16 00:00 75 12/22/16 22:00 72 12/22/16 22:00 72 18 147/101 93 12/22/16 20:00 98.4 75 25 131/92 86 12/22/16 20:00 75 12/22/16 19:05 88 Nasal Cannula 2.00 12/22/16 18:00 71 12/22/16 16:00 92 12/22/16 16:00 97.9 75 21 144/101 94 12/22/16 12:00 92 12/22/16 12:00 98.6 92 12 149/110 96 12/22/16 10:00 67 I/O 12/22/16 12/22/16 12/22/16 12/23/16 12/23/16 12/23/16 07:00 15:00 23:00 07:00 15:00 23:00 Intake Total 1295 ml 582 ml 475 ml 480 ml Output Total 200 ml 175 ml 1900 ml 1150 ml Balance 1095 ml 407 ml -1425 ml -670 ml Intake Oral 250 ml 240 ml 480 ml IV Total 1295 ml 332 ml 235 ml 0 ml Output Urine Total 200 ml 175 ml 1900 ml 1150 ml # Bowel Movements 0 0 Result Diagram: 12/23/16 0424 12/23/16 0424 Imaging Last Impressions Chest X-Ray 12/22/16 0000 Signed Impressions: Service Date/Time: Thursday, December 22, 2016 14:29 - CONCLUSION: 1. Mild bibasilar airspace disease, likely atelectasis. Noam Romano MD Abdomen/Pelvis CT 12/21/16 0422 Signed Impressions: Service Date/Time: Wednesday, December 21, 2016 05:42 - CONCLUSION: 1. Nonspecific mild long segment colitis. No abscess or obstruction. 2. Fatty liver. Van Mondragon MD Objective Remarks GENERAL: This is a well-nourished, well-developed patient, in no apparent distress. CARDIOVASCULAR: Regular rate and regular rhythm without murmurs, gallops, or rubs. RESPIRATORY: Clear to auscultation. Breath sounds equal bilaterally. No wheezes , rales, or rhonchi. GASTROINTESTINAL: Abdomen soft, non-tender, nondistended. Normal, active bowel sounds MUSCULOSKELETAL: Extremities without clubbing, cyanosis, or edema. NEURO: Alert & Oriented x4 to person, place, time, situation. Moves all ext x4 Medications and IVs Current Medications Sodium Chloride 1,000 ml @ 1,000 mls/hr Q1H ONCE IV Last administered on 04:43; Start 12/21/16 at 04:30; Stop 12/21/16 at 05:29; Status DC Sodium Chloride (NS 1000 ml Inj) 1,000 ml @ 1,000 mls/hr Q1H ONCE IV Last administered on 12/21/16 04:43; Start 12/21/16 at 04:45; Stop 12/21/16 at 05:44 ; Status DC Ondansetron HCl (Zofran Inj) 4 mg ONCE ONCE IV Last administered on 12/21/16 05:07; Start 12/21/16 at 05:15; Stop 12/21/16 at 05:16; Status DC Ondansetron HCl (Zofran Inj) 4 mg STK-MED ONCE .ROUTE ; Start 12/21/16 at 05:03 ; Stop 12/21/16 at 05:04; Status DC Potassium Bicarb/ Potassium Chloride 50 meq 50 meq ONCE ONCE PO ; Start at 05:45; Stop 12/21/16 at 05:46; Status DC Thiamine HCl 100 mg/Sodium Chloride 101 ml @ 101 mls/hr ONCE ONCE IV Last administered on 12/21/16 06:01; Start 12/21/16 at 05:45; Stop 12/21/16 at 06:44 ; Status DC Potassium Chloride/Sodium Chloride 1,000 ml @ 125 mls/hr Q8H IV Last administered on 12/22/16 05:45; Start 12/21/16 at 05:45; Stop 12/22/16 at 06:44 ; Status DC Magnesium Sulfate/ Dextrose (Magnesium Sulfate 1 Gm Premix) 100 ml @ 100 mls/ hr ONCE ONCE IV Last administered on 12/21/16 06:21; Start 12/21/16 at 05:45 ; Stop 12/21/16 at 06:44; Status DC Iohexol 70 ml 70 ml STK-MED ONCE IV Last administered on 12/21/16 05:55; Start 12/21/16 at 05:55; Stop 12/21/16 at 05:56; Status DC Vancomycin HCl 1000 mg/Sodium Chloride 250 ml @ 250 mls/hr ONCE ONCE IV Last administered on 12/21/16 08:06; Start 12/21/16 at 06:30; Stop 12/21/16 at 07:29 ; Status DC Piperacillin Sod/ Tazobactam Sod 50 ml @ 100 mls/hr ONCE ONCE IV Last administered on 12/21/16 06:38; Start 12/21/16 at 06:30; Stop 12/21/16 at 06:59 ; Status DC Potassium Chloride 100 ml @ 50 mls/hr BOLUS ONCE IV Last administered on 12/21 08:49; Start 12/21/16 at 06:30; Stop 12/21/16 at 08:29; Status DC Sodium Chloride 500 ml @ 500 mls/hr BOLUS ONCE IV Last administered on 08:05; Start 12/21/16 at 06:30; Stop 12/21/16 at 07:29; Status DC Pharmacy Profile Note 0 ml @ 0 mls/hr UNSCH PRN OTHER ADJUST FOR CREATININE CLRNCE; Start 12/21/16 at 06:45; Stop 12/22/16 at 06:44; Status DC Cefepime HCl 1000 mg/Sodium Chloride 100 ml @ 200 mls/hr Q8H IV Last administered on 12/22/16 06:07; Start 12/21/16 at 07:00; Stop 12/22/16 at 15:14 ; Status DC Metronidazole 100 ml @ 100 mls/hr Q6H IV Last administered on 12/22/16t 13:47 ; Start 12/21/16 at 08:00; Stop 12/22/16 at 15:14; Status DC Lactated Ringer's (Lr 1000 ml Inj) 1,000 ml @ 999 mls/hr BOLUS ONCE IV Last administered on 12/21/16 08:55; Start 12/21/16 at 06:45; Stop 12/21/16 at 07:45 ; Status DC Magnesium Oxide 800 mg 800 mg UNSCH PRN PO For Magnesium 1.2 - 1.6 mg/dL; Start 12/21/16 at 06:45 Magnesium Sulfate 4 gm/Sodium Chloride 100 ml @ 50 mls/hr UNSCH PRN IV For Magnesium 0.9 - 1.1 mg/dL; Start 12/21/16 at 06:45 Magnesium Sulfate 2 gm/Sodium Chloride 100 ml @ 50 mls/hr UNSCH PRN IV For Magnesium 1.2 - 1.6 mg/dL; Start 12/21/16 at 06:45 Potassium Chloride 100 ml @ 50 mls/hr Q2H PRN IV For Potassium 2.8 - 3.2 mEq/ L Last administered on 12/23/16t 07:20; Start 12/21/16 at 06:45 Potassium Chloride 100 ml @ 50 mls/hr Q2H PRN IV For Potassium 3.3 - 3.5 mEq/L ; Start 12/21/16 at 06:45 Potassium Chloride 100 ml @ 50 mls/hr Q2H PRN IV For Potassium 2.8 - 3.2 mEq/L ; Start 12/21/16 at 06:45 Potassium Chloride (KCl 40 Meq Premix Inj) 100 ml @ 25 mls/hr UNSCH PRN IV For Potassium 3.3 - 3.5 mEq/L; Start 12/21/16 at 06:45 Potassium Phosphate (K-Phos) 2,000 mg Q4H PRN PO For Phosphorus < 2.5 mg/dL; Start 12/21/16 at 06:45 Potassium Phosphate 2000 mg 2,000 mg UNSCH PRN PO/TUBE SEE LABEL COMMENTS; Start 12/21/16 at 06:45 Potassium Phosphate 30 mmol/ Sodium Chloride 260 ml @ 42 mls/hr UNSCH PRN IV SEE LABEL COMMENTS; Start 12/21/16 at 06:45 Sodium Phosphate/ Sodium Chloride (Sodium Phosphate Inj/NS 250 ml Inj) 250 ml @ 42 mls/hr UNSCH PRN IV For Phosphorus < 2.5 mg/dL; Start 12/21/16 at 06:45 Dextrose (D50w (Vial) Inj) 25 ml UNSCH PRN IV PUSH HYPOGLYCEMIA-SEE COMMENTS; Start 12/21/16 at 06:45 Insulin Human Regular (NovoLIN R SUPPLEMENTAL SCALE) 1 Q6HR SQ ; Start 12/21/16 at 12:00 Oxycodone/ Acetaminophen (Percocet 5-325 Mg) 1 tab Q4H PRN PO PAIN SCALE 1 TO 5 Last administered on 12/21/16 19:56; Start 12/21/16 at 06:45 Pantoprazole Sodium (Protonix Inj) 40 mg DAILY IV Last administered on 08:50; Start 12/21/16 at 09:00; Stop 12/22/16 at 06:44; Status DC Ondansetron HCl (Zofran Inj) 4 mg Q6H PRN IV NAUSEA OR VOMITING Last administered on 12/21/16 08:05; Start 12/21/16 at 06:45 Albuterol/ Ipratropium (Duoneb Neb) 1 ampule Q2HR NEB PRN INH WHEEZING; Start 12/21/16 at 06:45 Heparin Sodium (Porcine) (Heparin Inj) 5,000 units Q8H SQ Last administered on 12/23/16 00:20; Start 12/21/16 at 08:00 Miscellaneous Information 1 [id number] XX Last administered on 12/22/16 00:22; Start 12/21/16 at 06:45 Chlorhexidine Gluconate (Chlorhexidine 2% Cloth) 3 pack Taper DAILY@04 TOP Last administered on 12/23/16 03:13; Start 12/22/16 at 04:00; Stop 12/18/17 at 03:59 Chlorhexidine Gluconate (Chlorhexidine 2% Cloth) 3 pack UNSCH PRN TOP HYGIENIC CARE; Start 12/21/16 at 06:45 Lorazepam (Ativan Inj) 2 mg Q15M PRN IV PUSH withdraw symptoms Last administered on 12/23/16 03:25; Start 12/21/16 at 10:30 Diazepam (Valium) 10 mg Taper Q8H PO ; Start 12/21/16 at 10:30; Stop 12/21/16 at 11:00; Status DC Oxycodone HCl (Roxicodone) 5 mg Q4H PO Last administered on 12/23/16 05:53; Start 12/21/16 at 11:00 Clonidine (Catapres) 0.3 mg Q8H PO Last administered on 12/23/16 03:13; Start 12/21/16 at 11:00 Lorazepam 4 mg 4 mg STAT ONCE IV PUSH Last administered on 12/21/16 11:15; Start 12/21/16 at 10:30; Stop 12/21/16 at 10:49; Status DC Lactated Ringer's (Lr 1000 ml Inj) 1,000 ml @ 999 mls/hr BOLUS ONCE IV Last administered on 12/21/16 10:30; Start 12/21/16 at 10:30; Stop 12/21/16 at 11:30 ; Status DC Diazepam (Valium) 10 mg Q8H PO Last administered on 12/23/16 03:13; Start 04/29 at 11:00; Stop 12/23/16 at 03:01; Status DC Diazepam (Valium) 5 mg Q8H PO ; Start 12/23/16 at 11:00; Stop 12/25/16 at 03:01 Diazepam (Valium) 5 mg Q12H PO ; Start 12/25/16 at 11:00; Stop 12/26/16 at 23:01 Diazepam 5 mg 5 mg Q24H PO ; Start 12/27/16 at 11:00; Stop 12/28/16 at 11:01 Thiamine HCl/ Sodium Chloride (Thiamine Inj/NS Inj) 101 ml @ 101 mls/hr Q24H IV ; Start 12/22/16 at 01:45; Stop 12/23/16 at 02:44; Status Cancel Thiamine HCl 100 mg 100 mg DAILY PO ; Start 12/24/16 at 09:00 Multivitamins/ Thiamine HCl/ Folic Acid/Sodium Chloride (Mvi-12 Inj/ Thiamine Inj/ Folvite Inj/1/2 NS 500 ml Inj) 511.2 ml @ 125 mls/hr ONCE ONCE IV Last administered on 12/21/16 21:11; Start 12/21/16 at 20:45; Stop 12/22/16 at 00:50 ; Status DC Multivitamins 1 tab 1 tab DAILY PO ; Start 12/23/16 at 09:00 Thiamine HCl/ Sodium Chloride (Thiamine Inj/NS Inj) 101 ml @ 101 mls/hr Q24H IV Last administered on 12/22/16 19:46; Start 12/22/16 at 20:00; Stop at 20:59 Furosemide (Lasix Inj) 20 mg ONCE ONCE IV PUSH Last administered on 12/22/16 16:12; Start 12/22/16 at 15:15; Stop 12/22/16 at 15:17; Status DC Furosemide (Lasix Inj) 20 mg ONCE ONCE IV PUSH Last administered on 12/22/16 22:06; Start 12/22/16 at 20:00; Stop 12/22/16 at 21:23; Status DC A/P Assessment and Plan A/P Severe dehydration with evidence of end-organ damage- resolved. Hypovolemic Shock- resolved. Hypoxia -- likely atelectasis --check ABG -- wean o2 by NC for spo2 > 90%. Alcohol withdraw -- valium 10mg po q8h with taper schedule -- ativan 2mg iv q15min prn for withdraw symptoms -- clonidine 0.3mg po TID Opiate Withdraw -- oxycodone 5mg po q4h scheduled Polysubstance dependence -- referral to detox facility.previously with Dr. Sandoval and they will attempt to make a bed at [facility] detox. Possible colitis: unlikely. patient is without symptoms of colitis, no diarrhea or abdominal pain. no fever, leukocytosis. monitor clinically. hypokalemia will replace as needed. regular diet as tolerated scds, SQ Heparin for transfer to floor. Carmen Lemus MD Dec 23, 2016 08:48
[2016-12-23] MEDS: ONDANSETRON HCL 4 MG/2 ML VIAL IV PRN (08:49)
[2016-12-23] MEDS: DIAZEPAM 5 MG TAB PO SCH ×2 (11:09→19:25)
[2016-12-23 11:48] LABS: BLOOD GAS BASE EXCESS 0.1 mmol/L (-2-2); BLOOD GAS CARBOXYHEMOGLOBIN 1.9 % (0-4); BLOOD GAS HCO3 24 mmol/L (22-26); BLOOD GAS O2 HGB SATURATION 85 % (90-100); BLOOD GAS OXYGEN CONTENT 14.3 Vol % (12.0-20.0); BLOOD GAS PCO2 38 mmHg (38-42); BLOOD GAS PO2 55 mmHg (61-120); CRITICAL VALUE YES; DRAW SITE RT RADIAL; FIO2 21 %; NUMBER OF ARTERIAL PUNCTURES 1; STAT NO; TEMP CORR TO 98.6; ULNAR PULSE PRESENT
[2016-12-23] MEDS: THIAMINE INJ 100 MG in SODIUM CHLORIDE 0.9% INJ 100 ML IV SCH (19:25)
[2016-12-23] MEDS: RESP: ALBUTEROL 2.5 MG/IPRATROPIUM 0.5 MG NEB (SCH) NEB (20:00)
--- NOTE | 2016-12-23 20:00 | MB ---
cc: NED LEMUS MD, JOHN DATE OF CONSULTATION: 12/23/2016 REASON FOR CONSULTATION Pneumonia and probable COPD. HISTORY OF PRESENT ILLNESS This is a 56-year-old white female who was admitted to the emergency room with fever, diarrhea, abdominal pains and tremors. The patient was throwing up and was dehydrated and apparently has been drinking alcohol on a regular basis and her alcohol level upon admission was over 300. She also complained of abdominal pains, some nausea and denied any hematemesis or melena. Upon arrival in the ER, she was hypotensive and had to be given fluids for resuscitation and also placed on oxygen for hypoxemia and admitted to the ICU. The patient had to be started on IV antibiotics as well, and she did improve over the past 48 hours and has been placed on oxygen via nasal cannula at 3 liters. She has also been given benzodiazepines for possible alcohol withdrawal and opiate withdrawal. Chest x-ray done following admission showed bibasilar pulmonary infiltrates with atelectasis. The O2 saturations did improve after being on oxygen and presently the patient is alert, in no acute distress. She has a mild cough but does not bring up any sputum and she denies any chest pains but does still have some abdominal discomfort and no fevers or chills. PAST MEDICAL HISTORY Past history has included - 1. History of hypertension. 2. History of opiate use and she has been on Suboxone. PAST SURGICAL HISTORY 1. Appendectomy. 2. . 3. Hernia repairs. HABITS The patient drinks alcohol on a regular basis. No significant smoking. ALLERGIES NO DRUG ALLERGIES. FAMILY HISTORY Noncontributory. REVIEW OF SYSTEMS The patient has lost weight. She has nausea and epigastric distress. She has no urinary symptoms. No leg or calf muscle pains. She does have some joint pains to extremities and some depression with anxiety. PHYSICAL EXAMINATION GENERAL: This is a thinly built, middle-aged white female who is alert and oriented, slightly pale. No clubbing, no peripheral edema or lymphadenopathy. Skin turgor is diminished. VITAL SIGNS: Blood pressure 118/60, pulse is 80, respirations are 18, temperature 98.5. HEENT: Head normocephalic. Pupils are reactive and equal. Tongue is dry. Throat is mildly injected. Ears - no inflammation. NECK: No bruits or thyroid enlargement. CHEST: Equal movements with decreased excursions. Breath sounds diminished over the periphery with a few basilar crackles and occasional wheeze in the upper lung damian. HEART: Heart sounds are regular. S1, S2. No murmur. No S3. ABDOMEN: Abdomen is soft, protuberant without masses. No organomegaly or tenderness. The bowel sounds are active. EXTREMITIES: Decreased peripheral pulses. No calf tenderness. Reflexes are 1+. NEUROLOGIC: No gross motor or sensory deficits. Cranial nerves grossly intact. RECTAL: Exam is deferred. SKIN: No lesions. IMPRESSION 1. Bibasilar atelectasis with mild fluid overload. 2. Ethanolism. 3. History of hypertension. 4. Severe dehydration, resolved. 5. Anemia. 6. Bronchial reactivity. PLAN 1. The patient will be advised to use an incentive spirometer every two hours. 2. We will use O2 at 3 liters and wean it down to room air if she is clinically better. 3. DuoNeb solution with a nebulizer added four times a day. 4. Bedside pulmonary function study will be obtained. 5. A CT scan of the chest done to rule out any underlying mass or infiltrate and the patient will start rehab now. Thank you Dr. Lemus for this consultation. MD STEFFANY Garg/RADHA /6:54 PM /7:39 PM
--- NOTE | 2016-12-23 21:08 | RADRPT ---
EXAM DATE/TIME: 12/23/2016 20:44 [facility] COMPARISON: No previous studies available for comparison. INDICATIONS : Shortness of breath. RADIATION DOSE: 5.23 CTDIvol (mGy) MEDICAL HISTORY : Hypertension. Cardiovascular disease SURGICAL HISTORY : None. ENCOUNTER: Initial ACUITY: 1 day PAIN SCALE: 0/10 LOCATION: chest TECHNIQUE: Volumetric scanning of the chest was performed. Using automated exposure control and adjustment of t he mA and/or kV according to patient size, radiation dose was kept as low as reasonably achievable to obtain optimal diagnostic quality images. DICOM format image data is available electronically for r eview and comparison. Follow-up recommendations for incidentally detected pulmonary nodules are based at a minimum on nodul e size and patient risk factors according to Fleischner Society Guidelines. FINDINGS: Small bilateral pleural effusions are seen with bibasilar consolidation worse on the right. No apprec iable pathological adenopathy is seen within the mediastinum. CONCLUSION: Small bilateral pleural effusions and bibasilar consolidation worse on the right. Radha Dumont MD on December 23, 2016 at 21:03 Board Certified Radiologist. This report was verified electronically.
[2016-12-24] VITALS (11 sets, daily range): BP systolic 118–139; BP diastolic 79–100; PULSE 71–91; RESP 16–20; TEMP 97.5–98.9; O2SAT 94–99
[2016-12-24] MEDS: cloNIDine HCL 0.3 MG TAB PO SCH ×3 (01:42→20:50)
[2016-12-24] MEDS: DIAZEPAM 5 MG TAB PO SCH ×3 (01:42→18:44)
[2016-12-24 05:34] LABS: HEMATOCRIT 37.1 % (35.0-46.0); MEAN CELL VOLUME 105.2 FL (80.0-100.0); MEAN CORPUSCULAR HEMOGLOBIN 34.2 PG (27.0-34.0); MEAN CORPUSCULAR HGB CONC 32.5 % (32.0-36.0); PLATELET COUNT 106 TH/MM3 (150-450); RED BLOOD COUNT 3.53 MIL/MM3 (4.00-5.30); RED CELL DISTRIBUTION WIDTH 14.6 % (11.6-17.2); REVIEW FLAG FINAL; WHITE BLOOD COUNT 4.8 TH/MM3 (4.0-11.0)
[2016-12-24 05:44] LABS: BICARBONATE 26.5 MEQ/L (21.0-32.0); POTASSIUM 3.4 MEQ/L (3.5-5.1)
[2016-12-24] MEDS: RESP: ALBUTEROL 2.5 MG/IPRATROPIUM 0.5 MG NEB (SCH) NEB ×4 (08:00→20:40)
[2016-12-24] MEDS: HEPARIN SODIUM - SQ 10,000 UNITS/ML VIAL SQ SCH ×3 (08:05→23:20)
[2016-12-24] MEDS: MULTIVITAMIN TAB PO SCH (08:05)
[2016-12-24] MEDS: THIAMINE HCL 100 MG TAB PO SCH (08:05)
--- NOTE | 2016-12-24 08:16 | HHI.PR ---
Subjective Remarks is more comfortable today. stable on RA. has mild generalized abdominal pain. afebrile with no nausea,emesis or diarrhea. d/w the RN. Objective Vitals Vital Signs Date Time Temp Pulse Resp B/P Pulse Ox O2 Delivery O2 Flow Rate FiO2 12/24/16 06:00 71 12/24/16 04:00 98.5 71 17 139/94 95 12/24/16 04:00 71 12/24/16 00:00 71 12/24/16 00:00 98.9 71 17 122/87 95 12/23/16 22:00 75 12/23/16 20:00 75 12/23/16 20:00 98.9 69 17 105/80 95 12/23/16 19:35 96 Nasal Cannula 2.00 12/23/16 16:36 16 12/23/16 16:00 98.7 68 17 118/81 95 12/23/16 16:00 75 12/23/16 12:00 98.2 79 32 124/87 91 12/23/16 12:00 82 12/23/16 09:45 15 12/23/16 09:08 93 Nasal Cannula 2.00 I/O 12/23/16 12/23/16 12/23/16 12/24/16 12/24/16 12/24/16 07:00 15:00 23:00 07:00 15:00 23:00 Intake Total 480 ml 553 ml 555 ml 375 ml Output Total 1150 ml 250 ml 350 ml 250 ml Balance -670 ml 303 ml 205 ml 125 ml Intake Oral 480 ml 200 ml 200 ml 250 ml IV Total 0 ml 353 ml 355 ml 125 ml Output Urine Total 1150 ml 250 ml 350 ml 250 ml # Voids 1 # Bowel Movements 0 1 1 0 Result Diagram: 12/24/168 12/24/16 0318 Imaging Last Impressions Chest CT 12/23/16 1855 Signed Impressions: Service Date/Time: December 20:44 - CONCLUSION: Small bilateral pleural effusions and bibasilar consolidation worse on the right. Radha Dumont MD Chest X-Ray 12/22/16 0000 Signed Impressions: Service Date/Time: Thursday, December 22, 2016 14:29 - CONCLUSION: 1. Mild bibasilar airspace disease, likely atelectasis. Noam Romano MD Abdomen/Pelvis CT 12/21/16 0422 Signed Impressions: Service Date/Time: Wednesday, December 21, 2016 05:42 - CONCLUSION: 1. Nonspecific mild long segment colitis. No abscess or obstruction. 2. Fatty liver. Van Mondragon MD Objective Remarks GENERAL: This is a well-nourished, well-developed patient, in no apparent distress. CARDIOVASCULAR: Regular rate and regular rhythm without murmurs, gallops, or rubs. RESPIRATORY: Clear to auscultation. Breath sounds equal bilaterally. No wheezes , rales, or rhonchi. GASTROINTESTINAL: Abdomen soft, non-tender, nondistended. Normal, active bowel sounds MUSCULOSKELETAL: Extremities without clubbing, cyanosis, or edema. NEURO: Alert & Oriented x4 to person, place, time, situation. Moves all ext x4 Medications and IVs Current Medications Sodium Chloride 1,000 ml @ 1,000 mls/hr Q1H ONCE IV Last administered on 04:43; Start 12/21/16 at 04:30; Stop 12/21/16 at 05:29; Status DC Sodium Chloride (NS 1000 ml Inj) 1,000 ml @ 1,000 mls/hr Q1H ONCE IV Last administered on 12/21/16 04:43; Start 12/21/16 at 04:45; Stop 12/21/16 at 05:44 ; Status DC Ondansetron HCl (Zofran Inj) 4 mg ONCE ONCE IV Last administered on 12/21/16 05:07; Start 12/21/16 at 05:15; Stop 12/21/16 at 05:16; Status DC Ondansetron HCl (Zofran Inj) 4 mg STK-MED ONCE .ROUTE ; Start 12/21/16 at 05:03 ; Stop 12/21/16 at 05:04; Status DC Potassium Bicarb/ Potassium Chloride 50 meq 50 meq ONCE ONCE PO ; Start at 05:45; Stop 12/21/16 at 05:46; Status DC Thiamine HCl 100 mg/Sodium Chloride 101 ml @ 101 mls/hr ONCE ONCE IV Last administered on 12/21/16 06:01; Start 12/21/16 at 05:45; Stop 12/21/16 at 06:44 ; Status DC Potassium Chloride/Sodium Chloride 1,000 ml @ 125 mls/hr Q8H IV Last administered on 12/22/16 05:45; Start 12/21/16 at 05:45; Stop 12/22/16 at 06:44 ; Status DC Magnesium Sulfate/ Dextrose (Magnesium Sulfate 1 Gm Premix) 100 ml @ 100 mls/ hr ONCE ONCE IV Last administered on 12/21/16 06:21; Start 12/21/16 at 05:45 ; Stop 12/21/16 at 06:44; Status DC Iohexol 70 ml 70 ml STK-MED ONCE IV Last administered on 12/21/16 05:55; Start 12/21/16 at 05:55; Stop 12/21/16 at 05:56; Status DC Vancomycin HCl 1000 mg/Sodium Chloride 250 ml @ 250 mls/hr ONCE ONCE IV Last administered on 12/21/16 08:06; Start 12/21/16 at 06:30; Stop 12/21/16 at 07:29 ; Status DC Piperacillin Sod/ Tazobactam Sod 50 ml @ 100 mls/hr ONCE ONCE IV Last administered on 12/21/16 06:38; Start 12/21/16 at 06:30; Stop 12/21/16 at 06:59 ; Status DC Potassium Chloride 100 ml @ 50 mls/hr BOLUS ONCE IV Last administered on 12/21 08:49; Start 12/21/16 at 06:30; Stop 12/21/16 at 08:29; Status DC Sodium Chloride 500 ml @ 500 mls/hr BOLUS ONCE IV Last administered on 08:05; Start 12/21/16 at 06:30; Stop 12/21/16 at 07:29; Status DC Pharmacy Profile Note 0 ml @ 0 mls/hr UNSCH PRN OTHER ADJUST FOR CREATININE CLRNCE; Start 12/21/16 at 06:45; Stop 12/22/16 at 06:44; Status DC Cefepime HCl 1000 mg/Sodium Chloride 100 ml @ 200 mls/hr Q8H IV Last administered on 12/22/16 06:07; Start 12/21/16 at 07:00; Stop 12/22/16 at 15:14 ; Status DC Metronidazole 100 ml @ 100 mls/hr Q6H IV Last administered on 12/22/16 13:47 ; Start 12/21/16 at 08:00; Stop 12/22/16 at 15:14; Status DC Lactated Ringer's (Lr 1000 ml Inj) 1,000 ml @ 999 mls/hr BOLUS ONCE IV Last administered on 12/21/16 08:55; Start 12/21/16 at 06:45; Stop 12/21/16 at 07:45 ; Status DC Magnesium Oxide 800 mg 800 mg UNSCH PRN PO For Magnesium 1.2 - 1.6 mg/dL; Start 12/21/16 at 06:45 Magnesium Sulfate 4 gm/Sodium Chloride 100 ml @ 50 mls/hr UNSCH PRN IV For Magnesium 0.9 - 1.1 mg/dL; Start 12/21/16 at 06:45 Magnesium Sulfate 2 gm/Sodium Chloride 100 ml @ 50 mls/hr UNSCH PRN IV For Magnesium 1.2 - 1.6 mg/dL; Start 12/21/16 at 06:45 Potassium Chloride 100 ml @ 50 mls/hr Q2H PRN IV For Potassium 2.8 - 3.2 mEq/ L Last administered on 12/23/16 07:20; Start 12/21/16 at 06:45 Potassium Chloride 100 ml @ 50 mls/hr Q2H PRN IV For Potassium 3.3 - 3.5 mEq/L ; Start 12/21/16 at 06:45 Potassium Chloride 100 ml @ 50 mls/hr Q2H PRN IV For Potassium 2.8 - 3.2 mEq/L ; Start 12/21/16 at 06:45 Potassium Chloride (KCl 40 Meq Premix Inj) 100 ml @ 25 mls/hr UNSCH PRN IV For Potassium 3.3 - 3.5 mEq/L; Start 12/21/16 at 06:45 Potassium Phosphate (K-Phos) 2,000 mg Q4H PRN PO For Phosphorus < 2.5 mg/dL; Start 12/21/16 at 06:45 Potassium Phosphate 2000 mg 2,000 mg UNSCH PRN PO/TUBE SEE LABEL COMMENTS; Start 12/21/16 at 06:45 Potassium Phosphate 30 mmol/ Sodium Chloride 260 ml @ 42 mls/hr UNSCH PRN IV SEE LABEL COMMENTS; Start 12/21/16 at 06:45 Sodium Phosphate/ Sodium Chloride (Sodium Phosphate Inj/NS 250 ml Inj) 250 ml @ 42 mls/hr UNSCH PRN IV For Phosphorus < 2.5 mg/dL; Start 12/21/16 at 06:45 Dextrose (D50w (Vial) Inj) 25 ml UNSCH PRN IV PUSH HYPOGLYCEMIA-SEE COMMENTS; Start 12/21/16 at 06:45; Stop 12/23/16 at 08:45; Status DC Insulin Human Regular (NovoLIN R SUPPLEMENTAL SCALE) 1 Q6HR SQ ; Start 12/21/16 at 12:00; Stop 12/23/16 at 08:45; Status DC Oxycodone/ Acetaminophen (Percocet 5-325 Mg) 1 tab Q4H PRN PO PAIN SCALE 1 TO 5 Last administered on 12/23/16 08:45; Start 12/21/16 at 06:45 Pantoprazole Sodium (Protonix Inj) 40 mg DAILY IV Last administered on 08:50; Start 12/21/16 at 09:00; Stop 12/22/16 at 06:44; Status DC Ondansetron HCl (Zofran Inj) 4 mg Q6H PRN IV NAUSEA OR VOMITING Last administered on 12/23/16 08:49; Start 12/21/16 at 06:45 Albuterol/ Ipratropium (Duoneb Neb) 1 ampule Q2HR NEB PRN INH WHEEZING; Start 12/21/16 at 06:45 Heparin Sodium (Porcine) (Heparin Inj) 5,000 units Q8H SQ Last administered on 12/24/16 08:05; Start 12/21/16 at 08:00 Miscellaneous Information 1 Q361D XX Last administered on 12/22/16 00:22; Start 12/21/16 at 06:45 Chlorhexidine Gluconate (Chlorhexidine 2% Cloth) 3 pack Taper DAILY@04 TOP Last administered on 12/23/16 19:13; Start 12/22/16 at 04:00; Stop 12/18/17 at 03:59 Chlorhexidine Gluconate (Chlorhexidine 2% Cloth) 3 pack UNSCH PRN TOP HYGIENIC CARE; Start 12/21/16 at 06:45 Lorazepam (Ativan Inj) 2 mg Q15M PRN IV PUSH withdraw symptoms Last administered on 12/23/16 03:25; Start 12/21/16 at 10:30 Diazepam (Valium) 10 mg Taper Q8H PO ; Start 12/21/16 at 10:30; Stop 12/21/16 at 11:00; Status DC Oxycodone HCl (Roxicodone) 5 mg Q4H PO Last administered on 12/24/16 08:05; Start 12/21/16 at 11:00 Clonidine (Catapres) 0.3 mg Q8H PO Last administered on 12/24/16 01:42; Start 12/21/16 at 11:00 Lorazepam 4 mg 4 mg STAT ONCE IV PUSH Last administered on 12/21/16 11:15; Start 12/21/16 at 10:30; Stop 12/21/16 at 10:49; Status DC Lactated Ringer's (Lr 1000 ml Inj) 1,000 ml @ 999 mls/hr BOLUS ONCE IV Last administered on 12/21/16 10:30; Start 12/21/16 at 10:30; Stop 12/21/16 at 11:30 ; Status DC Diazepam (Valium) 10 mg Q8H PO Last administered on 12/23/16 03:13; Start 04/29 at 11:00; Stop 12/23/16 at 03:01; Status DC Diazepam (Valium) 5 mg Q8H PO Last administered on 12/24/16 01:42; Start 12/23 at 11:00; Stop 12/25/16 at 03:01 Diazepam (Valium) 5 mg Q12H PO ; Start 12/25/16 at 11:00; Stop 12/26/16 at 23:01 Diazepam 5 mg 5 mg Q24H PO ; Start 12/27/16 at 11:00; Stop 12/28/16 at 11:01 Thiamine HCl/ Sodium Chloride (Thiamine Inj/NS Inj) 101 ml @ 101 mls/hr Q24H IV ; Start 12/22/16 at 01:45; Stop 12/23/16 at 02:44; Status Cancel Thiamine HCl 100 mg 100 mg DAILY PO Last administered on 12/24/16 08:05; Start 12/24/16 at 09:00 Multivitamins/ Thiamine HCl/ Folic Acid/Sodium Chloride (Mvi-12 Inj/ Thiamine Inj/ Folvite Inj/1/2 NS 500 ml Inj) 511.2 ml @ 125 mls/hr ONCE ONCE IV Last administered on 12/21/16 21:11; Start 12/21/16 at 20:45; Stop 12/22/16 at 00:50 ; Status DC Multivitamins 1 tab 1 tab DAILY PO Last administered on 12/24/16 08:05; Start 12/23/16 at 09:00 Thiamine HCl/ Sodium Chloride (Thiamine Inj/NS Inj) 101 ml @ 101 mls/hr Q24H IV Last administered on 12/23/16 19:25; Start 12/22/16 at 20:00; Stop at 20:59; Status DC Furosemide (Lasix Inj) 20 mg ONCE ONCE IV PUSH Last administered on 12/22/16 16:12; Start 12/22/16 at 15:15; Stop 12/22/16 at 15:17; Status DC Furosemide (Lasix Inj) 20 mg ONCE ONCE IV PUSH Last administered on 12/22/16 22:06; Start 12/22/16 at 20:00; Stop 12/22/16 at 21:23; Status DC Albuterol/ Ipratropium (Duoneb Neb) 1 ampule QID NEB NEB ; Start 12/23/16 at 20 :00 A/P Assessment and Plan A/P Severe dehydration with evidence of end-organ damage- resolved. Hypovolemic Shock- resolved. Hypoxia -- likely atelectasis with fluid overload --check echo --incentive spirometry --pulmonary consult appreciated Alcohol withdrawal -- valium 10mg po q8h with taper schedule -- ativan 2mg iv q15min prn for withdraw symptoms -- clonidine 0.3mg po TID Opiate Withdraw -- oxycodone 5mg po q4h scheduled Polysubstance dependence -- referral to detox facility.previously with Dr. Sandoval and they will attempt to make a bed at [facility] detox. Possible colitis: improving. monitor clinically. hypokalemia will replace as needed. regular diet as tolerated scds, SQ Heparin for transfer to floor. Discharge Planning dc home within the next 24-48 hrs if remains stable. Carmen Lemus MD Dec 24, 2016 08:16
[2016-12-24] MEDS ORDERED: POTASSIUM CHLORIDE 10 MEQ CONTROLLED RELEASE TAB PO ONE (08:30)
--- NOTE | 2016-12-24 18:15 | HHI.PR ---
Subjective Remarks Alert and on O2 2L. No chest pain. Output was good.CT shows basal effusions and infiltrates Objective Vital Signs Date Time Temp Pulse Resp B/P Pulse Ox O2 Delivery O2 Flow Rate FiO2 12/24/16 16:44 Nasal Cannula 2.00 12/24/16 16:15 97.5 83 16 124/100 96 12/24/16 12:00 98.4 79 20 120/79 96 12/24/16 12:00 79 12/24/16 10:00 91 12/24/16 09:10 94 12/24/16 08:00 98.7 72 18 134/85 95 12/24/16 08:00 72 12/24/16 06:00 71 12/24/16 04:00 98.5 71 17 139/94 95 12/24/16 04:00 71 12/24/16 00:00 71 12/24/16 00:00 98.9 71 17 122/87 95 12/23/16 22:00 75 12/23/16 20:00 75 12/23/16 20:00 98.9 69 17 105/80 95 12/23/16 19:35 96 Nasal Cannula 2.00 I/O 12/23/16 12/23/16 12/23/16 12/24/16 12/24/16 12/24/16 07:00 15:00 23:00 07:00 15:00 23:00 Intake Total 480 ml 553 ml 555 ml 375 ml 480 ml Output Total 1150 ml 250 ml 350 ml 250 ml Balance -670 ml 303 ml 205 ml 125 ml 480 ml Intake Oral 480 ml 200 ml 200 ml 250 ml 480 ml IV Total 0 ml 353 ml 355 ml 125 ml 0 ml Output Urine Total 1150 ml 250 ml 350 ml 250 ml # Voids 1 3 # Bowel Movements 0 1 1 0 1 Result Diagram: 12/24/1631712/24/16317 Objective Remarks GENERAL: This is a thinly built, middle-aged white female who is alert and oriented, slightly pale. No clubbing, no peripheral edema or lymphadenopathy. Skin turgor is diminished. HEENT: Head normocephalic. Pupils are reactive and equal. Tongue is dry. Throat is mildly injected. Ears - no inflammation. NECK: No bruits or thyroid enlargement. CHEST: Equal movements with decreased excursions. Breath sounds diminished over the periphery with a f basilar crackles and occasional wheeze in the upper lung damian. HEART: Heart sounds are regular. S1, S2. No murmur. No S3. ABDOMEN: Abdomen is soft, protuberant without masses. No organomegaly or tenderness. The bowel sounds are active. EXTREMITIES: Decreased peripheral pulses. No calf tenderness. Reflexes are 1+. NEUROLOGIC: No gross motor or sensory deficits. Cranial nerves grossly intact. RECTAL: Exam is deferred. SKIN: No lesions. Assessment and Plan Assessment and Plan IMPRESSION 1. Bibasilar atelectasis with mild fluid overload. 2. Ethanolism. 3. History of hypertension. 4. Severe dehydration, resolved. 5. Anemia. 6. Bronchial reactivity. Plan : 1. Cont Weaning O2 to RA 2. PFT in am 3. IS at bedside qid. 4. Continue antibiotics 5. CBC,BMP in am Ilda Clarke MD Dec 24, 2016 18:15
[2016-12-24] MEDS ORDERED: RESP: ALBUTEROL 2.5 MG/IPRATROPIUM 0.5 MG NEB (SCH) NEB (20:00)
[2016-12-25] VITALS (9 sets, daily range): BP systolic 98–148; BP diastolic 63–102; PULSE 72–100; RESP 16–20; TEMP 97.4–99; O2SAT 93–97
[2016-12-25] MEDS: DIAZEPAM 5 MG TAB PO SCH ×3 (02:47→22:30)
[2016-12-25] MEDS: CHLORHEXIDINE GLUCONATE 2 % 1 PACK (2 CLOTHS) TOP SCH ×2 (03:17→23:49)
[2016-12-25] MEDS: cloNIDine HCL 0.3 MG TAB PO SCH ×3 (04:02→17:53)
[2016-12-25 07:00] LABS: HEMATOCRIT 35.2 % (35.0-46.0); MEAN CORPUSCULAR HEMOGLOBIN 36.1 PG (27.0-34.0); PLATELET COUNT 121 TH/MM3 (150-450); RED BLOOD COUNT 3.32 MIL/MM3 (4.00-5.30); RED CELL DISTRIBUTION WIDTH 14.7 % (11.6-17.2); REVIEW FLAG FINAL
[2016-12-25 07:14] LABS: BICARBONATE 26.7 MEQ/L (21.0-32.0)
[2016-12-25 07:32] LABS: POTASSIUM 3.7 MEQ/L (3.5-5.1)
[2016-12-25] MEDS: RESP: ALBUTEROL 2.5 MG/IPRATROPIUM 0.5 MG NEB (SCH) NEB ×4 (07:52→20:29)
[2016-12-25] MEDS: MULTIVITAMIN TAB PO SCH (08:41)
[2016-12-25] MEDS: HEPARIN SODIUM - SQ 10,000 UNITS/ML VIAL SQ SCH ×2 (08:41→14:55)
[2016-12-25] MEDS: THIAMINE HCL 100 MG TAB PO SCH (08:41)
--- NOTE | 2016-12-25 12:21 | HHI.PR ---
Subjective Remarks feels weak. still with some sob; on oxygen via [place]. afebrile. Objective Vitals Vital Signs Date Time Temp Pulse Resp B/P Pulse Ox O2 Delivery O2 Flow Rate FiO2 12/25/16 08:00 97.9 80 18 135/93 95 12/25/16 04:00 97.7 72 16 128/92 97 12/25/16 03:20 Nasal Cannula 2.00 12/25/16 00:00 98.2 74 17 121/93 97 12/24/16 20:54 Nasal Cannula 2.00 12/24/16 20:43 99 Nasal Cannula 2.00 12/24/16 20:00 98.0 82 17 118/80 94 12/24/16 18:38 90 121/83 12/24/16 16:44 Nasal Cannula 2.00 12/24/16 16:15 97.5 83 16 124/100 96 I/O 12/24/16 12/24/16 12/24/16 12/25/16 12/25/16 12/25/16 07:00 15:00 23:00 07:00 15:00 23:00 Intake Total 375 ml 480 ml 240 ml 360 ml Output Total 250 ml Balance 125 ml 480 ml 240 ml 360 ml Intake Oral 250 ml 480 ml 240 ml 360 ml IV Total 125 ml 0 ml Output Urine Total 250 ml # Voids 3 1 2 # Bowel Movements 0 1 1 Result Diagram: 12/25/16 0638 12/25/16 0638 Imaging Last Impressions Chest CT 12/23/16 1855 Signed Impressions: Service Date/Time: December 20:44 - CONCLUSION: Small bilateral pleural effusions and bibasilar consolidation worse on the right. K. Jack Dumont MD Chest X-Ray 12/22/16 0000 Signed Impressions: Service Date/Time: Thursday, December 22, 2016 14:29 - CONCLUSION: 1. Mild bibasilar airspace disease, likely atelectasis. Noam Romano MD Abdomen/Pelvis CT 12/21/16 0422 Signed Impressions: Service Date/Time: Wednesday, December 21, 2016 05:42 - CONCLUSION: 1. Nonspecific mild long segment colitis. No abscess or obstruction. 2. Fatty liver. Van Mondragon MD Objective Remarks GENERAL: with mild sob CARDIOVASCULAR: Regular rate and regular rhythm without murmurs, gallops, or rubs. RESPIRATORY: Clear to auscultation. Breath sounds equal bilaterally. No wheezes , rales, or rhonchi. GASTROINTESTINAL: Abdomen soft, non-tender, nondistended. Normal, active bowel sounds MUSCULOSKELETAL: Extremities without clubbing, cyanosis, or edema. NEURO: Alert & Oriented x4 to person, place, time, situation. Moves all ext x4 Medications and IVs Current Medications Sodium Chloride 1,000 ml @ 1,000 mls/hr Q1H ONCE IV Last administered on 04:43; Start 12/21/16 at 04:30; Stop 12/21/16 at 05:29; Status DC Sodium Chloride (NS 1000 ml Inj) 1,000 ml @ 1,000 mls/hr Q1H ONCE IV Last administered on 12/21/16 04:43; Start 12/21/16 at 04:45; Stop 12/21/16 at 05:44 ; Status DC Ondansetron HCl (Zofran Inj) 4 mg ONCE ONCE IV Last administered on 12/21/16 05:07; Start 12/21/16 at 05:15; Stop 12/21/16 at 05:16; Status DC Ondansetron HCl (Zofran Inj) 4 mg STK-MED ONCE .ROUTE ; Start 12/21/16 at 05:03 ; Stop 12/21/16 at 05:04; Status DC Potassium Bicarb/ Potassium Chloride 50 meq 50 meq ONCE ONCE PO ; Start at 05:45; Stop 12/21/16 at 05:46; Status DC Thiamine HCl 100 mg/Sodium Chloride 101 ml @ 101 mls/hr ONCE ONCE IV Last administered on 12/21/16 06:01; Start 12/21/16 at 05:45; Stop 12/21/16 at 06:44 ; Status DC Potassium Chloride/Sodium Chloride 1,000 ml @ 125 mls/hr Q8H IV Last administered on 12/22/16 05:45; Start 12/21/16 at 05:45; Stop 12/22/16 at 06:44 ; Status DC Magnesium Sulfate/ Dextrose (Magnesium Sulfate 1 Gm Premix) 100 ml @ 100 mls/ hr ONCE ONCE IV Last administered on 12/21/16 06:21; Start 12/21/16 at 05:45 ; Stop 12/21/16 at 06:44; Status DC Iohexol 70 ml 70 ml STK-MED ONCE IV Last administered on 12/21/16 05:55; Start 12/21/16 at 05:55; Stop 12/21/16 at 05:56; Status DC Vancomycin HCl 1000 mg/Sodium Chloride 250 ml @ 250 mls/hr ONCE ONCE IV Last administered on 12/21/16 08:06; Start 12/21/16 at 06:30; Stop 12/21/16 at 07:29 ; Status DC Piperacillin Sod/ Tazobactam Sod 50 ml @ 100 mls/hr ONCE ONCE IV Last administered on 12/21/16 06:38; Start 12/21/16 at 06:30; Stop 12/21/16 at 06:59 ; Status DC Potassium Chloride 100 ml @ 50 mls/hr BOLUS ONCE IV Last administered on 12/21 08:49; Start 12/21/16 at 06:30; Stop 12/21/16 at 08:29; Status DC Sodium Chloride 500 ml @ 500 mls/hr BOLUS ONCE IV Last administered on 08:05; Start 12/21/16 at 06:30; Stop 12/21/16 at 07:29; Status DC Pharmacy Profile Note 0 ml @ 0 mls/hr UNSCH PRN OTHER ADJUST FOR CREATININE CLRNCE; Start 12/21/16 at 06:45; Stop 12/22/16 at 06:44; Status DC Cefepime HCl 1000 mg/Sodium Chloride 100 ml @ 200 mls/hr Q8H IV Last administered on 12/22/16 06:07; Start 12/21/16 at 07:00; Stop 12/22/16 at 15:14 ; Status DC Metronidazole 100 ml @ 100 mls/hr Q6H IV Last administered on 12/22/16 13:47 ; Start 12/21/16 at 08:00; Stop 12/22/16 at 15:14; Status DC Lactated Ringer's (Lr 1000 ml Inj) 1,000 ml @ 999 mls/hr BOLUS ONCE IV Last administered on 12/21/16 08:55; Start 12/21/16 at 06:45; Stop 12/21/16 at 07:45 ; Status DC Magnesium Oxide 800 mg 800 mg UNSCH PRN PO For Magnesium 1.2 - 1.6 mg/dL; Start 12/21/16 at 06:45; Stop 12/24/16 at 08:17; Status DC Magnesium Sulfate 4 gm/Sodium Chloride 100 ml @ 50 mls/hr UNSCH PRN IV For Magnesium 0.9 - 1.1 mg/dL; Start 12/21/16 at 06:45; Stop 12/24/16 at 08:17; Status DC Magnesium Sulfate 2 gm/Sodium Chloride 100 ml @ 50 mls/hr UNSCH PRN IV For Magnesium 1.2 - 1.6 mg/dL; Start 12/21/16 at 06:45; Stop 12/24/16 at 08:17; Status DC Potassium Chloride 100 ml @ 50 mls/hr Q2H PRN IV For Potassium 2.8 - 3.2 mEq/ L Last administered on 12/23/16t 07:20; Start 12/21/16 at 06:45; Stop 12/24/16 at 08:17; Status DC Potassium Chloride 100 ml @ 50 mls/hr Q2H PRN IV For Potassium 3.3 - 3.5 mEq/L ; Start 12/21/16 at 06:45; Stop 12/24/16 at 08:17; Status DC Potassium Chloride 100 ml @ 50 mls/hr Q2H PRN IV For Potassium 2.8 - 3.2 mEq/L ; Start 12/21/16 at 06:45; Stop 12/24/16 at 08:17; Status DC Potassium Chloride (KCl 40 Meq Premix Inj) 100 ml @ 25 mls/hr UNSCH PRN IV For Potassium 3.3 - 3.5 mEq/L; Start 12/21/16 at 06:45; Stop 12/24/16 at 08:17; Status DC Potassium Phosphate (K-Phos) 2,000 mg Q4H PRN PO For Phosphorus < 2.5 mg/dL; Start 12/21/16 at 06:45; Stop 12/24/16 at 08:17; Status DC Potassium Phosphate 2000 mg 2,000 mg UNSCH PRN PO/TUBE SEE LABEL COMMENTS; Start 12/21/16 at 06:45; Stop 12/24/16 at 08:17; Status DC Potassium Phosphate 30 mmol/ Sodium Chloride 260 ml @ 42 mls/hr UNSCH PRN IV SEE LABEL COMMENTS; Start 12/21/16 at 06:45; Stop 12/24/16 at 08:17; Status DC Sodium Phosphate/ Sodium Chloride (Sodium Phosphate Inj/NS 250 ml Inj) 250 ml @ 42 mls/hr UNSCH PRN IV For Phosphorus < 2.5 mg/dL; Start 12/21/16 at 06:45; Stop 12/24/16 at 08:17; Status DC Dextrose (D50w (Vial) Inj) 25 ml UNSCH PRN IV PUSH HYPOGLYCEMIA-SEE COMMENTS; Start 12/21/16 at 06:45; Stop 12/23/16 at 08:45; Status DC Insulin Human Regular (NovoLIN R SUPPLEMENTAL SCALE) 1 Q6HR SQ ; Start 12/21/16 at 12:00; Stop 12/23/16 at 08:45; Status DC Oxycodone/ Acetaminophen (Percocet 5-325 Mg) 1 tab Q4H PRN PO PAIN SCALE 1 TO 5 Last administered on 12/23/16 08:45; Start 12/21/16 at 06:45 Pantoprazole Sodium (Protonix Inj) 40 mg DAILY IV Last administered on 08:50; Start 12/21/16 at 09:00; Stop 12/22/16 at 06:44; Status DC Ondansetron HCl (Zofran Inj) 4 mg Q6H PRN IV NAUSEA OR VOMITING Last administered on 12/23/16 08:49; Start 12/21/16 at 06:45 Albuterol/ Ipratropium (Duoneb Neb) 1 ampule Q2HR NEB PRN INH WHEEZING; Start 12/21/16 at 06:45 Heparin Sodium (Porcine) (Heparin Inj) 5,000 units Q8H SQ Last administered on 12/25/16 08:41; Start 12/21/16 at 08:00 Miscellaneous Information 1 Q361D XX Last administered on 12/22/16 00:22; Start 12/21/16 at 06:45 Chlorhexidine Gluconate (Chlorhexidine 2% Cloth) 3 pack Taper DAILY@04 TOP Last administered on 12/23/16 19:13; Start 12/22/16 at 04:00; Stop 12/18/17 at 03:59 Chlorhexidine Gluconate (Chlorhexidine 2% Cloth) 3 pack UNSCH PRN TOP HYGIENIC CARE; Start 12/21/16 at 06:45 Lorazepam (Ativan Inj) 2 mg Q15M PRN IV PUSH withdraw symptoms Last administered on 12/23/16 03:25; Start 12/21/16 at 10:30 Diazepam (Valium) 10 mg Taper Q8H PO ; Start 12/21/16 at 10:30; Stop 12/21/16 at 11:00; Status DC Oxycodone HCl (Roxicodone) 5 mg Q4H PO Last administered on 12/25/16 11:35; Start 12/21/16 at 11:00 Clonidine (Catapres) 0.3 mg Q8H PO Last administered on 12/25/16 11:34; Start 12/21/16 at 11:00 Lorazepam 4 mg 4 mg STAT ONCE IV PUSH Last administered on 12/21/16 11:15; Start 12/21/16 at 10:30; Stop 12/21/16 at 10:49; Status DC Lactated Ringer's (Lr 1000 ml Inj) 1,000 ml @ 999 mls/hr BOLUS ONCE IV Last administered on 12/21/16 10:30; Start 12/21/16 at 10:30; Stop 12/21/16 at 11:30 ; Status DC Diazepam (Valium) 10 mg Q8H PO Last administered on 12/23/16 03:13; Start 04/29 at 11:00; Stop 12/23/16 at 03:01; Status DC Diazepam (Valium) 5 mg Q8H PO Last administered on 12/25/16 02:47; Start 12/23 at 11:00; Stop 12/25/16 at 03:01; Status DC Diazepam (Valium) 5 mg Q12H PO Last administered on 12/25/16 11:34; Start at 11:00; Stop 12/26/16 at 23:01 Diazepam 5 mg 5 mg Q24H PO ; Start 12/27/16 at 11:00; Stop 12/28/16 at 11:01 Thiamine HCl/ Sodium Chloride (Thiamine Inj/NS Inj) 101 ml @ 101 mls/hr Q24H IV ; Start 12/22/16 at 01:45; Stop 12/23/16 at 02:44; Status Cancel Thiamine HCl 100 mg 100 mg DAILY PO Last administered on 12/25/16 08:41; Start 12/24/16 at 09:00 Multivitamins/ Thiamine HCl/ Folic Acid/Sodium Chloride (Mvi-12 Inj/ Thiamine Inj/ Folvite Inj/1/2 NS 500 ml Inj) 511.2 ml @ 125 mls/hr ONCE ONCE IV Last administered on 12/21/16 21:11; Start 12/21/16 at 20:45; Stop 12/22/16 at 00:50 ; Status DC Multivitamins 1 tab 1 tab DAILY PO Last administered on 12/25/16 08:41; Start 12/23/16 at 09:00 Thiamine HCl/ Sodium Chloride (Thiamine Inj/NS Inj) 101 ml @ 101 mls/hr Q24H IV Last administered on 12/23/16 19:25; Start 12/22/16 at 20:00; Stop at 20:59; Status DC Furosemide (Lasix Inj) 20 mg ONCE ONCE IV PUSH Last administered on 12/22/16 16:12; Start 12/22/16 at 15:15; Stop 12/22/16 at 15:17; Status DC Furosemide (Lasix Inj) 20 mg ONCE ONCE IV PUSH Last administered on 12/22/16 22:06; Start 12/22/16 at 20:00; Stop 12/22/16 at 21:23; Status DC Albuterol/ Ipratropium (Duoneb Neb) 1 ampule QID NEB NEB Last administered on 12/25/16 12:05; Start 12/23/16 at 20:00 Potassium Chloride (KCl) 30 meq ONCE ONCE PO Last administered on 12/24/16 10 :15; Start 12/24/16 at 08:30; Stop 12/24/16 at 08:31; Status DC Albuterol/ Ipratropium (Duoneb Neb) 1 ampule QID NEB NEB ; Start 12/24/16 at 20 :00; Status Cancel A/P Assessment and Plan A/P Severe dehydration with evidence of end-organ damage- resolved. Hypovolemic Shock- resolved. Hypoxia-- likely due to atelectasis vs pneumonia with fluid overload --keep on oxygen to keep O2 sat > 90% --continue antibiotic --received a dose of lasix on 12/22 -- echo pending --incentive spirometry --pulmonary following Alcohol withdrawal -- valium with taper schedule -- ativan 2mg iv q15min prn for withdraw symptoms -- clonidine 0.3mg po TID Opiate Withdraw -- oxycodone 5mg po q4h scheduled Polysubstance dependence -- referral to detox facility.previously with Dr. Sandoval and they will attempt to make a bed at [facility] detox. Possible colitis: improving. monitor clinically. hypokalemia replaced. DVT prophylaxis with scds, SQ Heparin Discharge Planning still feels weak. case management consulted to assist with dc planning to rehab. Carmen Lemus MD Dec 25, 2016 12:21
[2016-12-25] MEDS: LEVOFLOXACIN 500 MG PREMIX INJ 100 ML IV SCH (14:54)
--- NOTE | 2016-12-25 15:36 | ECHRPT ---
Indication: Shortness of breath CONCLUSIONS Normal left ventricular size. Wall thickness is normal. The left ventricular systolic function is moderately reduced with an estimated ejection fraction in the range of 40-45%. Anterior-Apical Hypokinesis/Akinesis. [id number] mitral valve regurgitation. Mitral annular calcification is present. There is trace tricuspid valve regurgitation. There is estimated mild pulmonary hypertension present (49 mmHg). Doppler appers to indicate possible ASD/PFO BP: 139 / 94 HR: 71 Rhythm: MEASUREMENTS (Male / Female) Normal Values Technical Quality:Technically difficult study 2D ECHO LV Diastolic Diameter PLAX 5.0 cm 4.2 - 5.9 / 3.9 - 5.3 cm LV Systolic Diameter PLAX 4.1 cm IVS Diastolic Thickness 0.8 cm 0.6 - 1.0 / 0.6 - 0.9 cm LVPW Diastolic Thickness 0.6 cm 0.6 - 1.0 / 0.6 - 0.9 cm LV Relative Wall Thickness 0.3 RV Internal Dim ED PLAX 2.1 cm LA Systolic Diameter LX 3.0 cm 3.0 - 4.0 / 2.7 - 3.8 cm DOPPLER Mitral E Point Velocity 63.2 cm/s Mitral A Point Velocity 57.3 cm/s Mitral E to A Ratio 1.1 LV E' Lateral Velocity 5.3 cm/s Mitral E to LV E' Lateral Ratio 12.0 LV E' Septal Velocity 4.2 cm/s Mitral E to LV E' Septal Ratio 15.1 TR Peak Velocity 291.0 cm/s TR Peak Gradient 33.9 mmHg FINDINGS LEFT VENTRICLE Normal left ventricular size. Wall thickness is normal. The left ventricular systolic function is moderately reduced with an estimated ejection fraction in the range of 40-45%. There is hypokinesis with distinct regional wall motion abnormalities. Apical Hypokinesis. RIGHT VENTRICLE Normal right ventricular size and systolic function. LEFT ATRIUM The left atrial size is normal. RIGHT ATRIUM The right atrial size is normal. ATRIAL SEPTUM Doppler appers to indicate possible ASD/PFO AORTA The aortic root and proximal ascending aorta are normal in size on limited imaging. MITRAL VALVE Pqzho-[id number] mitral valve regurgitation. Mitral annular calcification is present. AORTIC VALVE Trileaflet aortic valve.trace aortic valve regurgitation. TRICUSPID VALVE There is trace tricuspid valve regurgitation. There is estimated mild pulmonary hypertension present (49 mmHg). PULMONARY VALVE The pulmonary valve is not well visualized. VESSELS The inferior vena cava is normal in size. PERICARDIUM No pericardial effusion. Jack Vazquez MD (Electronically Signed) Final Date:25 December 2016 15:35 Amended: 26 December 2016 18:35
--- NOTE | 2016-12-25 17:13 | MB ---
cc: JULIETTE QUIROS MD DATE OF CONSULTATION: 12/25/2016. REASON FOR CONSULTATION: Abnormal EKG and cardiomyopathy. HISTORY OF PRESENT ILLNESS: The patient is a pleasant 56-year-old woman who denies cardiac history but has a history of heavy alcohol use and was brought to the hospital with fever, diarrhea, abdominal pain and tremors as well as nausea and vomiting. Her alcohol level on admission was over 300. Over the last several days, the patient had been generally improving with supportive care for her illness. An EKG was taken today which was significantly different than her prior EKG, and thus I was consulted. She denies any significant symptoms such as chest pain, shortness of breath, lightheadedness, dizziness or syncope. PAST MEDICAL HISTORY: As above. CURRENT MEDICATIONS: 1. Valium. 2. Roxicodone. 3. Levaquin. 4. Thiamine. 5. Clonidine. ALLERGIES: NO KNOWN DRUG ALLERGIES. PHYSICAL EXAMINATION: VITAL SIGNS: Afebrile, pulse 86, respiratory rate 20, blood pressure 148/102, satting 94% on two liters. GENERAL: Pleasant and well-appearing, mildly tremulous woman in no distress. NECK: No jugular venous distention. LUNGS: Clear to auscultation bilaterally. CARDIOVASCULAR: Regular rate and rhythm. No murmurs appreciated. ABDOMEN: Benign. EXTREMITIES: No edema. LABORATORY DATA: Sodium 140, potassium 3.7, chloride 102, bicarbonate 26.7, BUN 5, creatinine 0.34. Initial troponin was negative, but only one set was drawn. AST 149, ALT 89. INR is 1.0. White count 4.0, hematocrit 35.2, platelets 121,000. CARDIOLOGY STUDIES: Initial EKG showed sinus rhythm with no significant S-T changes. EKG from earlier today showed sinus rhythm with diffuse deep T-wave inversions concerning for ischemia, particularly in the apex and inferior regions. Echocardiogram shows a reduced ejection fraction of 40% to 45% with apical hypo/akinesis. IMPRESSION Cardiomyopathy. The patient has a new-found cardiomyopathy with apical hypokinesis. It is possible this is a nonischemic / Takotsubo cardiomyopathy given the multiple metabolic issues for the patient and the absence of significant chest pain-like symptoms. However, certainly she may also have ischemic disease as well. I will get two more sets of cardiac enzymes, and if normal will plan for a nuclear stress test. If they are significantly abnormal, would likely go right to cardiac catheterization. Again, she is currently feeling the best she has felt this hospitalization despite the change in her EKG. Further recommendations based on her clinical course. Thank you again for the opportunity to participate in this patient's care. MD DAMON Simms/MARGE /4:38 PM /5:08 PM
[2016-12-26] VITALS (11 sets, daily range): BP systolic 110–140; BP diastolic 63–94; PULSE 72–101; RESP 16–20; TEMP 97.7–99; O2SAT 93–99
[2016-12-26] MEDS: HEPARIN SODIUM - SQ 10,000 UNITS/ML VIAL SQ SCH ×3 (00:39→15:48)
[2016-12-26] MEDS: cloNIDine HCL 0.3 MG TAB PO SCH ×2 (02:51→11:08)
[2016-12-26 05:04] LABS: HEMATOCRIT 35.3 % (35.0-46.0); MEAN CELL VOLUME 107.5 FL (80.0-100.0); MEAN CORPUSCULAR HEMOGLOBIN 35.2 PG (27.0-34.0); MEAN CORPUSCULAR HGB CONC 32.7 % (32.0-36.0); PLATELET COUNT 137 TH/MM3 (150-450); RED BLOOD COUNT 3.29 MIL/MM3 (4.00-5.30); REVIEW FLAG FINAL; WHITE BLOOD COUNT 3.4 TH/MM3 (4.0-11.0)
[2016-12-26 05:31] LABS: BICARBONATE 31.7 MEQ/L (21.0-32.0); POTASSIUM 3.4 MEQ/L (3.5-5.1)
[2016-12-26] MEDS: RESP: ALBUTEROL 2.5 MG/IPRATROPIUM 0.5 MG NEB (SCH) NEB ×4 (07:58→21:09)
[2016-12-26] MEDS: MULTIVITAMIN TAB PO SCH (08:42)
[2016-12-26] MEDS: THIAMINE HCL 100 MG TAB PO SCH (08:42)
[2016-12-26] MEDS: DIAZEPAM 5 MG TAB PO SCH ×2 (11:08→23:17)
[2016-12-26] MEDS ORDERED: POTASSIUM CHLORIDE 20 MEQ CONTROLLED RELEASE TAB PO ONE (11:30)
--- NOTE | 2016-12-26 11:39 | HHI.PR ---
Subjective Remarks No acute events overnight. Afebrile, vital signs stable. Patient reports she has not had diarrhea in 2 days. Endorses weakness however is able to get out of bed to the bathroom with a walker. Denies chest pain or shortness of breath. Objective Vitals Vital Signs Date Time Temp Pulse Resp B/P Pulse Ox O2 Delivery O2 Flow Rate FiO2 12/26/16 08:00 98.3 76 16 125/88 98 12/26/16 07:59 93 Nasal Cannula 2.00 12/26/16 04:00 98.3 79 16 140/94 98 12/26/16 03:51 18 12/26/16 01:08 Nasal Cannula 2.00 12/26/16 00:00 97.7 87 17 122/83 99 12/25/16 20:58 94 Nasal Cannula 2.00 12/25/16 20:30 77 12/25/16 20:03 97.4 100 16 98/63 93 12/25/16 16:00 99.0 86 18 139/95 94 12/25/16 13:06 143/98 12/25/16 12:00 98.7 86 20 148/102 94 12/25/16 12:00 83 I/O 12/25/16 12/25/16 12/25/16 12/26/16 12/26/16 12/26/16 06:59 14:59 22:59 06:59 14:59 22:59 Intake Total 360 ml 960 ml 0 ml Balance 360 ml 960 ml 0 ml Intake Oral 360 ml 960 ml 0 ml # Voids 2 4 2 # Bowel Movements 0 Result Diagram: 12/26/16 0359 12/26/16 0359 Objective Remarks GENERAL: with mild sob CARDIOVASCULAR: Regular rate and regular rhythm without murmurs, gallops, or rubs. RESPIRATORY: Clear to auscultation. Breath sounds equal bilaterally. No wheezes , rales, or rhonchi. GASTROINTESTINAL: Abdomen soft, non-tender, nondistended. Normal, active bowel sounds MUSCULOSKELETAL: Extremities without clubbing, cyanosis, or edema. NEURO: Alert & Oriented x4 to person, place, time, situation. Moves all ext x4 A/P Assessment and Plan Severe dehydration with evidence of end-organ damage- resolved. Hypovolemic Shock- resolved. Hypoxia-- likely due to atelectasis vs pneumonia with fluid overload --keep on oxygen to keep O2 sat > 90% --continue Levaquin --received a dose of lasix on 12/22 -- echo showed EF of 4045 percent with apical hypokinesis --incentive spirometry, mario patel --pulmonary following, chest CT showed small bilateral pleural effusions and bibasilar consolidation Alcohol withdrawal -- valium with taper schedule -- ativan 2mg iv q15min prn for withdraw symptoms -- clonidine 0.3mg po TID Opiate Withdraw -- oxycodone 5mg po q4h scheduled Polysubstance dependence -- referral to detox facility, previously with Dr. Sandoval and they will attempt to make a bed at [facility] detox. Possible colitis: improving. monitor clinically. Patient has not had diarrhea and more than 2 days, abdominal pain improved hypokalemia replaced. DVT prophylaxis with scds, SQ Heparin Gabrielle Melendez MD R3 Dec 26, 2016 11:38
--- NOTE | 2016-12-26 12:54 | EKG ---
Date Performed: 12/25/2016 Time Performed: 14:15:50 PTAGE: 56 years EKG: Sinus rhythm ST DEVIATION AND MARKED T-WAVE ABNORMALITY, CONSIDER ANTEROLATERAL ISCHEMIA ST DEVIATION AND MODERAT E T-WAVE ABNORMALITY, CONSIDER INFERIOR ISCHEMIA ABNORMAL ECG PREVIOUS TRACING : 12/21/2016 04.03 Since prior tracing, the ischemic appearing T-waves are new . Clinical correlation is recommended. DOCTOR: Jack Vazquez Interpretating Date/Time 12/26/2016 12:52:20
[2016-12-26] MEDS ORDERED: REGADENOSON INJ 0.4 MG/5 ML SYR ONE (13:13)
--- NOTE | 2016-12-26 15:10 | RADRPT ---
EXAM DATE/TIME: 12/26/2016 12:50 [facility] COMPARISON: CHEST PA & LAT, December 22, 2016, 14:29. INDICATIONS : Cardiomyopathy. Abnormal EKG. DOSE: 25.6 mCi Tc99m Myoview at stress. 8.1 mCi Tc99m Myoview at rest. 0.4 mg Lexiscan STRESS SYMPTOMS: Stomach cramps. EJECTION FRACTION: 40% MEDICAL HISTORY : Carcinoma, basal cell. SURGICAL HISTORY : Appendectomy. section. Inguinal hernia repair. ENCOUNTER: Initial ACUITY: 1 day PAIN SCALE: 4/10 LOCATION: Bilateral chest TECHNIQUE: The patient underwent pharmacologic stress with infusion of prescribed dose. Continuous ECG tracing was monitored during stress. Gated SPECT imaging was performed after stress and conventional SPECT i maging was performed at rest. The examination was performed on a SPECT/CT scanner, both attenuation and non-corrected datasets were reviewed. FINDINGS: DISTRIBUTION: The maximum perfused segment at stress is in the anterolateral wall. PERFUSION STUDY: The pattern of perfusion at stress is within normal limits without any significant ischemia and there is breast attenuation artifact involving the anterior wall. GATED STUDY: There is hypokinesis in the apical wall. CONCLUSION: No appreciable ischemia. RISK CATEGORY: Low (<1% Annual Mortality Rate) Radha Dumont MD on December 26, 2016 at 15:07 Board Certified Radiologist. This report was verified electronically.
[2016-12-26] MEDS: LEVOFLOXACIN 500 MG PREMIX INJ 100 ML IV SCH (15:47)
--- NOTE | 2016-12-26 17:34 | PD.CARD.PN ---
Subjective Subjective Remarks Pt feels well, no cp/sob Objective Medications Administered Medications Medications (Trade) Dose Ordered Sig/Melonie Route PRN Reason Start Time Stop Time Status Last Admin Dose Admin Oxycodone/ Acetaminophen (Percocet 5-325 Mg) 1 tab Q4H PRN PO PAIN SCALE 1 TO 5 12/21/16 06:45 12/23/16 08:45 Ondansetron HCl (Zofran Inj) 4 mg Q6H PRN IV NAUSEA OR VOMITING 12/21/16 06:45 12/23/16 08:49 Heparin Sodium (Porcine) (Heparin Inj) 5,000 units Q8H SQ 12/21/16 08:00 12/26/16 15:48 Miscellaneous Information 1 Q361D XX 12/21/16 06:45 12/22/16 00:22 Chlorhexidine Gluconate (Chlorhexidine 2% Cloth) 3 pack Taper DAILY@04 TOP 12/22/16 04:00 12/18/17 03:59 12/23/16 19:13 Lorazepam (Ativan Inj) 2 mg Q15M PRN IV PUSH withdraw symptoms 12/21/16 10:30 12/23/16 03:25 Clonidine (Catapres) 0.3 mg Q8H PO 12/21/16 11:00 12/26/16 11:08 Diazepam (Valium) 5 mg Q12H PO 12/25/16 11:00 12/26/16 23:01 12/26/16 11:08 Thiamine HCl (Vitamin B1) 100 mg DAILY PO 12/24/16 09:00 12/25/16 08:41 Multivitamins 1 tab 1 tab DAILY PO 12/23/16 09:00 12/25/16 08:41 Levofloxacin/ Dextrose (Levaquin 500 Mg Premix Inj) 100 ml @ 100 mls/hr Q24H IV 12/25/16 14:00 12/26/16 15:47 Oxycodone HCl (Roxicodone) 10 mg Q4H PO 12/25/16 15:00 12/26/16 15:47 Vital Signs / I&O Vital Signs Date Time Temp Pulse Resp B/P Pulse Ox O2 Delivery O2 Flow Rate FiO2 12/26/16 16:55 99.0 101 20 110/63 96 12/26/16 15:44 96 Nasal Cannula 2.00 12/26/16 12:00 72 12/26/16 08:00 78 12/26/16 08:00 98.3 76 16 125/88 98 12/26/16 07:59 93 Nasal Cannula 2.00 12/26/16 04:00 98.3 79 16 140/94 98 12/26/16 03:51 18 12/26/16 01:08 Nasal Cannula 2.00 12/26/16 00:00 97.7 87 17 122/83 99 12/25/16 20:58 94 Nasal Cannula 2.00 12/25/16 20:30 77 12/25/16 20:03 97.4 100 16 98/63 93 I/O 12/25/16 12/25/16 12/25/16 12/26/16 12/26/16 12/26/16 07:00 15:00 23:00 07:00 15:00 23:00 Intake Total 360 ml 960 ml 0 ml Balance 360 ml 960 ml 0 ml Intake Oral 360 ml 960 ml 0 ml # Voids 2 4 2 # Bowel Movements 0 Physical Exam GENERAL: This is a well-nourished, well-developed patient, in no apparent distress. CARDIOVASCULAR: Regular rate and rhythm without murmurs, gallops, or rubs. RESPIRATORY: Clear to auscultation. Breath sounds equal bilaterally. No wheezes , rales, or rhonchi. GASTROINTESTINAL: Abdomen soft, non-tender, nondistended. Normal active bowel sounds MUSCULOSKELETAL: Extremities without clubbing, cyanosis, or edema. NEURO: Alert & Oriented x4 to person, place, time, situation. Moves all ext x4 ; mildly tremulous Laboratory Laboratory Tests Test 12/25/16 12/26/16 22:37 03:59 Total Creatine Kinase 40 U/L 34 U/L Troponin I 0.05 NG/ML 0.05 NG/ML White Blood Count 3.4 TH/MM3 Red Blood Count 3.29 MIL/MM3 Hemoglobin 11.6 GM/DL Hematocrit 35.3 % Mean Corpuscular Volume 107.5 FL Mean Corpuscular Hemoglobin 35.2 PG Mean Corpuscular Hemoglobin 32.7 % Concent Red Cell Distribution Width 15.0 % Platelet Count 137 TH/MM3 Mean Platelet Volume 8.2 FL Sodium Level 139 MEQ/L Potassium Level 3.4 MEQ/L Chloride Level 101 MEQ/L Carbon Dioxide Level 31.7 MEQ/L Anion Gap 6 MEQ/L Blood Urea Nitrogen 4 MG/DL Creatinine 0.47 MG/DL Estimat Glomerular Filtration 137 ML/MIN Rate Random Glucose 119 MG/DL Calcium Level 8.8 MG/DL Imaging Last Impressions Myocardial Perfusion Scan Nuc Med 12/26/16 0000 Signed Impressions: Service Date/Time: Monday, December 26, 2016 12:50 - CONCLUSION: No appreciable ischemia. RISK CATEGORY: Low (<1%% Annual Mortality Rate) Radha Dumont MD Chest CT 12/23/16 1855 Signed Impressions: Service Date/Time: December 20:44 - CONCLUSION: Small bilateral pleural effusions and bibasilar consolidation worse on the right. Radha Dumont MD Chest X-Ray 12/22/16 0000 Signed Impressions: Service Date/Time: Thursday, December 22, 2016 14:29 - CONCLUSION: 1. Mild bibasilar airspace disease, likely atelectasis. Noam Romano MD Abdomen/Pelvis CT 12/21/16 0422 Signed Impressions: Service Date/Time: Wednesday, December 21, 2016 05:42 - CONCLUSION: 1. Nonspecific mild long segment colitis. No abscess or obstruction. 2. Fatty liver. Van Mondragon MD Assessment and Plan Problem List: (1) NICM (nonischemic cardiomyopathy) Assessment and Plan: Likely Etoh vs Takotsubo; will add low dose coreg/ronald (2) Abnormal EKG Assessment and Plan: Diffuse T-wave changes, no ischemia likely from apical WMA (3) PFO (patent foramen ovale) Assessment and Plan: incidental finding on echo; will add asa Assessment and Plan From cardiac standpoint would be ok w/ d/c to rehab; happy to see her in my office in 1-2 weeks. Jack Vazquez MD Dec 26, 2016 17:34
[2016-12-26] MEDS ORDERED: cloNIDine HCL 0.1 MG TAB PO SCH (18:00)
[2016-12-26] MEDS ORDERED: PILL SPLITTER OTHER PRN (18:00)
[2016-12-26] MEDS: cloNIDine HCL 0.1 MG TAB PO SCH (18:29)
[2016-12-26] MEDS: CARVEDILOL 3.125 MG TAB PO SCH (20:27)
[2016-12-27] VITALS (9 sets, daily range): BP systolic 119–142; BP diastolic 68–91; PULSE 62–93; RESP 16–19; TEMP 97.2–99.4; O2SAT 89–99
[2016-12-27] MEDS: HEPARIN SODIUM - SQ 10,000 UNITS/ML VIAL SQ SCH ×4 (00:55→23:31)
[2016-12-27] MEDS: cloNIDine HCL 0.1 MG TAB PO SCH ×3 (03:33→19:00)
[2016-12-27] MEDS: CHLORHEXIDINE GLUCONATE 2 % 1 PACK (2 CLOTHS) TOP SCH (03:35)
[2016-12-27 06:59] LABS: AUTOMATED NEUTROPHIL # 2.8 TH/MM3 (1.8-7.7); BASOPHIL % 0.3 % (0.0-2.0); EOSINOPHIL # 0.1 TH/MM3 (0-0.4); EOSINOPHIL % 1.8 % (0.0-4.0); HEMATOCRIT 36.7 % (35.0-46.0); HEMO FLAGS DIFF FINAL; LYMPH % 15.9 % (9.0-44.0); LYMPHOCYTE # 0.7 TH/MM3 (1.0-4.8); MEAN CELL VOLUME 106.4 FL (80.0-100.0); MEAN CORPUSCULAR HEMOGLOBIN 35.3 PG (27.0-34.0); MEAN CORPUSCULAR HGB CONC 33.2 % (32.0-36.0); PLATELET COUNT 173 TH/MM3 (150-450); RED BLOOD COUNT 3.45 MIL/MM3 (4.00-5.30); RED CELL DISTRIBUTION WIDTH 14.7 % (11.6-17.2); WHITE BLOOD COUNT 4.1 TH/MM3 (4.0-11.0)
[2016-12-27 07:31] LABS: BICARBONATE 27.7 MEQ/L (21.0-32.0); POTASSIUM 4.1 MEQ/L (3.5-5.1)
[2016-12-27] MEDS: RESP: ALBUTEROL 2.5 MG/IPRATROPIUM 0.5 MG NEB (SCH) NEB ×4 (08:38→18:58)
[2016-12-27] MEDS: LISINOPRIL 5 MG TAB PO SCH (10:14)
[2016-12-27] MEDS: MULTIVITAMIN TAB PO SCH (10:14)
[2016-12-27] MEDS: THIAMINE HCL 100 MG TAB PO SCH (10:14)
[2016-12-27] MEDS: CARVEDILOL 3.125 MG TAB PO SCH ×2 (10:14→21:24)
[2016-12-27] MEDS: DIAZEPAM 5 MG TAB PO SCH (11:57)
--- NOTE | 2016-12-27 12:47 | HHI.PR ---
Subjective Remarks Pt states that she is feeling much better today, complains on pain on her left calf which has apparently been present x 3 days but she never told RN this. She is also complaining of RUQ RLQ pain which she rates a 7/10. Comes and goes. no nausea or vomiting. SOB is improved. Pt wishes to go to detox rehab and is waiting to speak w CM regarding this. Objective Vitals Vital Signs Date Time Temp Pulse Resp B/P Pulse Ox O2 Delivery O2 Flow Rate FiO2 12/27/16 12:00 99.4 91 18 125/85 96 12/27/16 10:20 Nasal Cannula 2.00 12/27/16 08:43 92 Nasal Cannula 3.00 12/27/16 08:00 99.1 91 19 133/90 97 12/27/16 04:33 18 12/27/16 04:00 98.1 78 16 119/91 95 12/27/16 01:06 Room Air 2.00 12/27/16 00:00 98.1 62 16 142/68 99 12/26/16 21:11 95 Nasal Cannula 2.00 12/26/16 20:30 81 12/26/16 19:00 97.8 76 18 118/78 96 12/26/16 16:00 76 12/26/16 16:00 97.8 93 18 121/90 95 12/26/16 15:44 96 Nasal Cannula 2.00 I/O 12/26/16 12/26/16 12/26/16 12/27/16 12/27/16 12/27/16 07:00 15:00 23:00 07:00 15:00 23:00 Intake Total 0 ml 480 ml 250 ml Balance 0 ml 480 ml 250 ml Intake Oral 0 ml 480 ml 250 ml # Voids 2 3 2 # Bowel Movements 0 0 Result Diagram: 12/27/16 0638 12/27/16 0638 Imaging Last Impressions Myocardial Perfusion Scan Nuc Med 12/26/16 0000 Signed Impressions: Service Date/Time: Monday, December 26, 2016 12:50 - CONCLUSION: No appreciable ischemia. RISK CATEGORY: Low (<1%% Annual Mortality Rate) Radha Dumont MD Chest CT 12/23/16 4606 Signed Impressions: Service Date/Time: December 20:44 - CONCLUSION: Small bilateral pleural effusions and bibasilar consolidation worse on the right. Radha Dumont MD Chest X-Ray 12/22/16 0000 Signed Impressions: Service Date/Time: Thursday, December 22, 2016 14:29 - CONCLUSION: 1. Mild bibasilar airspace disease, likely atelectasis. Noam Romano MD Abdomen/Pelvis CT 12/21/16 0422 Signed Impressions: Service Date/Time: Wednesday, December 21, 2016 05:42 - CONCLUSION: 1. Nonspecific mild long segment colitis. No abscess or obstruction. 2. Fatty liver. Van Mondragon MD Objective Remarks GENERAL: with mild sob CARDIOVASCULAR: Regular rate and regular rhythm without murmurs RESPIRATORY: Clear to auscultation. Breath sounds equal bilaterally. No wheezes GASTROINTESTINAL: Abdomen soft,tender to deep palpation mainly in the right upper and mid regions, slightly distended but no guarding. Normal, active bowel sounds MUSCULOSKELETAL: Extremities without clubbing, cyanosis, or edema. NEURO: Alert & Oriented x4 to person, place, time, situation. Moves all ext x4 A/P Assessment and Plan Severe dehydration with evidence of end-organ damage- resolved. Hypovolemic Shock- resolved. Hypoxia-- likely due to atelectasis vs pneumonia with fluid overload --keep on oxygen to keep O2 sat > 90% --continue Levaquin --received a dose of lasix on 12/22 -- echo showed EF of 4045 percent with apical hypokinesis --incentive spirometry, duo nebs --pulmonary following, chest CT showed small bilateral pleural effusions and bibasilar consolidation Alcohol withdrawal -- valium with taper schedule -- ativan 2mg iv q15min prn for withdraw symptoms -- clonidine 0.3mg po TID -- Pt interested in going to detox rehab. CM assisting Opiate Withdraw -- oxycodone 5mg po q4h scheduled Polysubstance dependence -- referral to detox facility, previously with Dr. Sandoval and they will attempt to make a bed at [facility] detox. Possible colitis: improving. monitor clinically. Patient has not had diarrhea and more than 3 days, abdominal pain improved but still present. add on levaquin, will add flagyl. Pt also complaining of right upper quadrant pain, will check u/s abdomen. Left calf pain check leg u/s hypokalemia replaced. DVT prophylaxis with scds, SQ Heparin Discharge Planning f/u on abdominal and leg u/s walk test to see if she requires home oxygen CM assisting w helping find detox rehab. on Rajni Newell MD Dec 27, 2016 12:47
--- NOTE | 2016-12-27 12:47 | HHI.FF ---
Face to Face Verification I have seen patient Keisha Briones on 12/27/16. My clinical findings support the need for the requested home health care services because: I certify that my clinical findings support that this patient is homebound because: Rajni Aguilar MD Dec 27, 2016 12:47
[2016-12-27] MEDS: LEVOFLOXACIN 500 MG PREMIX INJ 100 ML IV SCH (13:17)
[2016-12-27] MEDS: metroNIDAZOLE 500 MG TAB PO SCH ×2 (13:50→21:24)
--- NOTE | 2016-12-27 14:10 | RADRPT ---
EXAM DATE/TIME: 12/27/2016 13:16 [facility] COMPARISON: No previous studies available for comparison. INDICATIONS : Left leg pain. MEDICAL HISTORY : Hypertension. Renal calculi. Skin cancer. SURGICAL HISTORY : Arthroscopy. section. ENCOUNTER: Initial ACUITY: 3 days PAIN SCORE: 3/10 LOCATION: Left leg. TECHNIQUE: Venous ultrasound of the leg was performed from the inguinal ligament to the proximal calf. Real-antony e, color Doppler and spectral tracing, compression and augmentation techniques were used. FINDINGS: There is normal compressibility of the deep venous system from the inguinal region to the proximal ca lf. No echogenic clot is seen in the lumen of the common femoral, femoral, popliteal, and posterior tibial veins. There is a normal response of the venous system to proximal and distal augmentation an d respiration. CONCLUSION: Normal examination. Efren Soto MD on December 27, 2016 at 14:09 Board Certified Radiologist. This report was verified electronically.
--- NOTE | 2016-12-27 19:59 | HHI.PR ---
Subjective Remarks Alert and on O2 2L.C/O Abd pain and leg pains No chest pain. .CT shows basal effusions and infiltrates Objective Vital Signs Date Time Temp Pulse Resp B/P Pulse Ox O2 Delivery O2 Flow Rate FiO2 12/27/16 16:00 97.2 87 18 120/82 92 12/27/16 15:21 89 21 12/27/16 13:16 93 Room Air 12/27/16 12:46 92 12/27/16 12:00 99.4 91 18 125/85 96 12/27/16 10:20 Nasal Cannula 2.00 12/27/16 08:43 92 Nasal Cannula 3.00 12/27/16 08:00 99.1 91 19 133/90 97 12/27/16 04:33 18 12/27/16 04:00 98.1 78 16 119/91 95 12/27/16 01:06 Room Air 2.00 12/27/16 00:00 98.1 62 16 142/68 99 12/26/16 21:11 95 Nasal Cannula 2.00 12/26/16 20:30 81 I/O 12/26/16 12/26/16 12/26/16 12/27/16 12/27/16 12/27/16 07:00 15:00 23:00 07:00 15:00 23:00 Intake Total 0 ml 480 ml 250 ml 488 ml Balance 0 ml 480 ml 250 ml 488 ml Intake Oral 0 ml 480 ml 250 ml 360 ml IV Total 128 ml # Voids 2 3 2 3 # Bowel Movements 0 0 Result Diagram: 12/27/1638 12/27/16637 Objective Remarks GENERAL: This is a thinly built, middle-aged white female who is alert and oriented, slightly pale. No clubbing, no peripheral edema or lymphadenopathy. HEENT: Head normocephalic. Pupils are reactive and equal. Tongue is dry. Throat is mildly injected. Ears - no inflammation. NECK: No bruits or thyroid enlargement. CHEST: Equal movements with decreased excursions. Breath sounds diminished over the periphery with a few basilar crackles and occasional wheeze in the upper lung damian. HEART: Heart sounds are regular. S1, S2. No murmur. No S3. ABDOMEN: Abdomen is soft, protuberant without masses. No organomegaly or tenderness. The bowel sounds are active. EXTREMITIES: Decreased peripheral pulses. No calf tenderness. Reflexes are 1+. NEUROLOGIC: No gross motor or sensory deficits. Cranial nerves grossly intact. RECTAL: Exam is deferred. SKIN: No lesions. Assessment and Plan Assessment and Plan IMPRESSION 1. Bibasilar atelectasis with mild fluid overload. 2. Ethanolism. 3. History of hypertension. 4. Severe dehydration, resolved. 5. Anemia. 6. Bronchial reactivity. Plan : 1. Cont Weaning O2 to RA 2. PFT today 3. IS at bedside qid. 4. Continue antibiotics for 1 week. 5. Chest X ray in am 6. To rehab soon Ilda Clarke MD Dec 27, 2016 19:59
--- NOTE | 2016-12-27 21:05 | RADRPT ---
EXAM DATE/TIME: 12/27/2016 20:28 [facility] COMPARISON: No previous studies available for comparison. INDICATIONS : Abdomen pain. MEDICAL HISTORY : Hypertension. Renal calculi. Skin cancer. SURGICAL HISTORY : Appendectomy. section. ENCOUNTER: Initial ACUITY: 1 day PAIN SCORE: 3/10 LOCATION: Abdomen. MEASUREMENTS: LIVER: 17.4 cm length COMMON DUCT: 4 mm RIGHT KIDNEY: 11.3 x 4.0 x 6.2 cm LEFT KIDNEY: 9.3 x 5.1 x 4.9 cm SPLEEN: 9.8 cm length AORTA: 2.3cm maximal FINDINGS: LIVER: Mild increased echotexture without focal lesion or ductal dilatation. COMMON DUCT: No intraluminal mass or stone visualized. GALLBLADDER: Contains no stones, demonstrates no wall thickening or pericholecystic fluid. Sludge is seen within the gallbladder neck PANCREAS: The visualized portions are within normal limits. RIGHT KIDNEY: No hydronephrosis, stone or mass. LEFT KIDNEY: No hydronephrosis, stone or mass. SPLEEN: No focal lesion. AORTA: Non aneurysmal. IVC: Within normal limits. CONCLUSION: 1. Large right-sided pleural effusion. 2. Hepatomegaly. 3. Mild increased echotexture of the liver parenchyma can be seen with hepatic steatosis or hepatocel lular disease. 4. Minimal sludge in the gallbladder dependent portion. Hermes Conn MD on December 27, 2016 at 21:02 Board Certified Radiologist. This report was verified electronically.
[2016-12-28] VITALS (11 sets, daily range): BP systolic 121–145; BP diastolic 83–98; PULSE 78–89; RESP 16–20; TEMP 98.4–99.3; O2SAT 89–96
[2016-12-28] MEDS: CHLORHEXIDINE GLUCONATE 2 % 1 PACK (2 CLOTHS) TOP SCH (00:40)
[2016-12-28] MEDS: cloNIDine HCL 0.1 MG TAB PO SCH ×3 (03:42→19:00)
[2016-12-28 06:02] LABS: HEMATOCRIT 35.7 % (35.0-46.0); MEAN CELL VOLUME 105.5 FL (80.0-100.0); MEAN CORPUSCULAR HEMOGLOBIN 34.7 PG (27.0-34.0); MEAN CORPUSCULAR HGB CONC 32.9 % (32.0-36.0); PLATELET COUNT 209 TH/MM3 (150-450); RED BLOOD COUNT 3.38 MIL/MM3 (4.00-5.30); RED CELL DISTRIBUTION WIDTH 14.6 % (11.6-17.2); REVIEW FLAG FINAL; WHITE BLOOD COUNT 3.8 TH/MM3 (4.0-11.0)
[2016-12-28] MEDS: metroNIDAZOLE 500 MG TAB PO SCH ×3 (06:06→21:04)
--- NOTE | 2016-12-28 06:08 | RADRPT ---
EXAM DATE/TIME: 12/28/2016 05:13 [facility] COMPARISON: CHEST PA & LAT, December 22, 2016, 14:29. CHEST SINGLE AP, December 21, 2016, 4:21. INDICATIONS : Short of breath, no coughing MEDICAL HISTORY : Cardiovascular disease. SURGICAL HISTORY : section. ENCOUNTER: Subsequent ACUITY: 1 week PAIN SCORE: 0/10 LOCATION: Bilateral chest FINDINGS: There has been interval development of increased interstitial markings bilaterally suggestive of pulm onary edema. The heart size is stable. There appears to be a small effusion on both sides.. The bony structures are stable. CONCLUSION: Interval develop of the pulmonary edema. Jamil Lee MD on December 28, 2016 at 6:03 Board Certified Radiologist. This report was verified electronically.
[2016-12-28 06:37] LABS: BICARBONATE 29.1 MEQ/L (21.0-32.0); POTASSIUM 3.6 MEQ/L (3.5-5.1)
[2016-12-28] MEDS: MULTIVITAMIN TAB PO SCH (09:32)
[2016-12-28] MEDS: THIAMINE HCL 100 MG TAB PO SCH (09:32)
[2016-12-28] MEDS: LISINOPRIL 5 MG TAB PO SCH (09:32)
[2016-12-28] MEDS: CARVEDILOL 3.125 MG TAB PO SCH ×2 (09:32→21:04)
[2016-12-28] MEDS: HEPARIN SODIUM - SQ 10,000 UNITS/ML VIAL SQ SCH ×3 (09:33→22:37)
[2016-12-28] MEDS: DIAZEPAM 5 MG TAB PO SCH (11:09)
[2016-12-28] MEDS: LEVOFLOXACIN 500 MG PREMIX INJ 100 ML IV SCH (13:31)
--- NOTE | 2016-12-28 16:25 | HHI.PR ---
Subjective Remarks She tells me that shortness of breath at rest has improved. However, earlier today she was "panting" when she was going to the bathroom and come back. Currently on room air. Denies any chest pains, nausea or vomiting. Still has some left calf pain. Objective Vitals Vital Signs Date Time Temp Pulse Resp B/P Pulse Ox O2 Delivery O2 Flow Rate FiO2 12/28/16 13:31 94 Room Air 12/28/16 12:50 96 12/28/16 12:08 85 12/28/16 12:00 99.1 87 20 135/88 90 12/28/16 09:31 94 Room Air 12/28/16 08:00 98.5 78 20 123/85 90 12/28/16 04:20 99.3 89 16 130/87 94 12/28/16 04:00 99.3 89 16 130/87 94 12/28/16 00:00 99.1 87 17 130/83 94 12/27/16 20:00 98.0 93 17 121/82 90 I/O 12/27/16 12/27/16 12/27/16 12/28/16 12/28/16 12/28/16 07:00 15:00 23:00 07:00 15:00 23:00 Intake Total 250 ml 488 ml 480 ml 340 ml Balance 250 ml 488 ml 480 ml 340 ml Intake Oral 250 ml 360 ml 480 ml 340 ml IV Total 128 ml # Voids 2 3 3 2 # Bowel Movements 0 0 0 Result Diagram: 12/28/16 0548 12/28/16 0548 Imaging Last Impressions Chest X-Ray 12/28/16 0600 Signed Impressions: Service Date/Time: Wednesday, December 28, 2016 05:13 - CONCLUSION: Interval develop of the pulmonary edema. Jamil Lee MD Lower Extremity Ultrasound 12/27/16 0000 Signed Impressions: Service Date/Time: Tuesday, December 27, 2016 13:16 - CONCLUSION: Normal examination. Efren Soto MD Abdomen Ultrasound 12/27/16 0000 Signed Impressions: Service Date/Time: Tuesday, December 27, 2016 20:28 - CONCLUSION: 1. Large right-sided pleural effusion. 2. Hepatomegaly. 3. Mild increased echotexture of the liver parenchyma can be seen with hepatic steatosis or hepatocellular disease. 4. Minimal sludge in the gallbladder dependent portion. Hermes Conn MD Myocardial Perfusion Scan Nuc Med 12/26/16 0000 Signed Impressions: Service Date/Time: Monday, December 26, 2016 12:50 - CONCLUSION: No appreciable ischemia. RISK CATEGORY: Low (<1%% Annual Mortality Rate) Radha Dumont MD Chest CT 12/23/16 1855 Signed Impressions: Service Date/Time: December 20:44 - CONCLUSION: Small bilateral pleural effusions and bibasilar consolidation worse on the right. Radha Dumont MD Abdomen/Pelvis CT 12/21/16 0422 Signed Impressions: Service Date/Time: Wednesday, December 21, 2016 05:42 - CONCLUSION: 1. Nonspecific mild long segment colitis. No abscess or obstruction. 2. Fatty liver. Van Mondragon MD Objective Remarks GENERAL: Laying on bed, appears comfortable CARDIOVASCULAR: Regular rate and regular rhythm without murmurs RESPIRATORY: Crackles noted on the right lower base. No wheezing GASTROINTESTINAL: Abdomen soft, hepatomegaly. Nontender at this time with deep palpation. slightly distended but no guarding. Normal, active bowel sounds MUSCULOSKELETAL: Extremities without edema. NEURO: Alert & Oriented x4 to person, place, time, situation. Moves all ext x4 Psych: Pleasant. Answers questions appropriately A/P Assessment and Plan Severe dehydration with evidence of end-organ damage- resolved. Hypovolemic Shock- resolved. Hypoxia-- likely due to atelectasis vs pneumonia with fluid overload --keep on oxygen to keep O2 sat > 90% --continue Levaquin --We'll start her on Lasix IV 40 mg daily one dose now. -- echo showed EF of 4045 percent with apical hypokinesis --incentive spirometry, duo nebs --pulmonary following, chest CT showed small bilateral pleural effusions and bibasilar consolidation, ultrasound abdomen shows large right sided pleural effusion. Discussed the case with Dr. Clarke, pulmonologists, agrees w thoracentesis. u/s guided thoracentesis ordered and fluids cultures and labs. Alcohol withdrawal -- valium with taper schedule -- ativan 2mg iv q15min prn for withdraw symptoms -- clonidine 0.3mg po TID -- Pt interested in going to detox rehab. CM assisting Opiate Withdraw -- oxycodone 5mg po q4h scheduled Polysubstance dependence -- referral to detox facility, previously with Dr. Sandoval and they will attempt to make a bed at [facility] detox. Possible colitis: improving. monitor clinically. Patient has not had diarrhea and more than 3 days, abdominal pain improved but still present. on levaquin and flagyl. Abdominal ultrasound shows "Large right- sided pleural effusion. Hepatomegaly. Mild increased echotexture of the liver parenchyma can be seen with hepatic steatosis or hepatocellular disease. Minimal sludge in the gallbladder dependent portion" Left calf pain Negative for DVT. Electrolytes reviewed and aren't within normal limits. hypokalemia replaced. DVT prophylaxis with scds, SQ Heparin Discharge Planning walk test ordered yesterday but still pending. CM assisting w helping find detox rehab. on levaquin and flagyl u/s guided thoracentesis Rajni Aguilar MD Dec 28, 2016 16:25
[2016-12-28] MEDS: FUROSEMIDE 40 MG/4 ML VIAL IV PUSH SCH (16:56)
--- NOTE | 2016-12-28 20:24 | HHI.PR ---
Subjective Remarks Alert and off O2 .C/O Abd pain and leg pains No chest pain. .CT shows basal effusions and infiltrates. Ultrasound of abdomen shows a large effusion Objective Vital Signs Date Time Temp Pulse Resp B/P Pulse Ox O2 Delivery O2 Flow Rate FiO2 12/28/16 19:45 98.7 86 16 121/88 89 12/28/16 16:00 98.4 86 20 145/98 95 12/28/16 13:31 94 Room Air 12/28/16 12:50 96 12/28/16 12:08 85 12/28/16 12:00 99.1 87 20 135/88 90 12/28/16 09:31 94 Room Air 12/28/16 08:00 98.5 78 20 123/85 90 12/28/16 04:20 99.3 89 16 130/87 94 12/28/16 04:00 99.3 89 16 130/87 94 12/28/16 00:00 99.1 87 17 130/83 94 I/O 12/27/16 12/27/16 12/27/16 12/28/16 12/28/16 12/28/16 06:59 14:59 22:59 06:59 14:59 22:59 Intake Total 250 ml 488 ml 480 ml 340 ml 700 ml Balance 250 ml 488 ml 480 ml 340 ml 700 ml Intake Oral 250 ml 360 ml 480 ml 340 ml 700 ml IV Total 128 ml # Voids 2 3 3 2 4 # Bowel Movements 0 0 0 Result Diagram: 12/28/16 0548 12/28/16 0548 Objective Remarks GENERAL: This is a thinly built, middle-aged white female who is alert and oriented, slightly pale. No clubbing, no peripheral edema or lymphadenopathy. HEENT: Head normocephalic. Pupils are reactive and equal. Tongue is dry. Throat is mildly injected. Ears - no inflammation. NECK: No bruits or thyroid enlargement. CHEST: Equal movements with decreased excursions. Breath sounds diminished over the bases with a few basilar crackles. HEART: Heart sounds are regular. S1, S2. No murmur. No S3. ABDOMEN: Abdomen is soft, protuberant without masses. No organomegaly or tenderness. The bowel sounds are active. EXTREMITIES: Decreased peripheral pulses. No calf tenderness. Reflexes are 1+. NEUROLOGIC: No gross motor or sensory deficits. Cranial nerves grossly intact. RECTAL: Exam is deferred. SKIN: No lesions. Assessment and Plan Assessment and Plan IMPRESSION 1. Bibasilar atelectasis with mild fluid overload. 2. Ethanolism. 3. History of hypertension. 4. Severe dehydration, resolved. 5. Right effusion, large 6. Bronchial reactivity. Plan : 1. Will get Thoracentesis done in am 2. Coag profile 3. Cont Lasix daily. 4. Continue antibiotics 5. Nebs tid Duoneb 6. BMP, CBC Ilda Clarke MD Dec 28, 2016 20:24
[2016-12-29] VITALS (7 sets, daily range): BP systolic 88–121; BP diastolic 60–88; PULSE 73–87; RESP 16–18; TEMP 97.6–98.8; O2SAT 91–94
[2016-12-29] MEDS: CHLORHEXIDINE GLUCONATE 2 % 1 PACK (2 CLOTHS) TOP SCH (01:12)
[2016-12-29] MEDS: cloNIDine HCL 0.1 MG TAB PO SCH ×2 (03:11→11:12)
[2016-12-29] MEDS: metroNIDAZOLE 500 MG TAB PO SCH ×2 (06:03→13:14)
[2016-12-29] MEDS: HEPARIN SODIUM - SQ 10,000 UNITS/ML VIAL SQ SCH ×2 (08:00→15:42)
[2016-12-29] MEDS ORDERED: LORazepam 2 MG/ML VIAL IV PUSH ONE (08:45)
[2016-12-29] MEDS: LISINOPRIL 5 MG TAB PO SCH (11:12)
[2016-12-29] MEDS: THIAMINE HCL 100 MG TAB PO SCH (11:12)
[2016-12-29] MEDS: FUROSEMIDE 40 MG/4 ML VIAL IV PUSH SCH (11:12)
[2016-12-29] MEDS: MULTIVITAMIN TAB PO SCH (11:13)
[2016-12-29] MEDS: CARVEDILOL 3.125 MG TAB PO SCH (11:22)
--- NOTE | 2016-12-29 12:55 | RADRPT ---
EXAM DATE/TIME: 12/29/2016 08:16 [facility] COMPARISON: No previous studies available for comparison. INDICATIONS : Right pleural effusion. MEDICAL HISTORY : Hypertension. Kidney stones. SURGICAL HISTORY : Appendectomy. Right ankle surgery. Hernia repair. section. ENCOUNTER: Initial ACUITY: 1 day PAIN SCORE: 3/10 LOCATION: Right chest MEASUREMENTS: SKIN TO PARIETAL PLEURA: Inadequate fluid SKIN TO MAX SAFE DEPTH: Inadequate fluid ESTIMATED FLUID VOLUME: 25 cc FLUID COMPOSITION: simple FINDINGS: No marking was performed. Small amount of fluid in the right pleural space CONCLUSION: Small amount of fluid in the right pleural space estimated at 25 cc. Jairo Mackenzie MD on December 29, 2016 at 12:53 Board Certified Radiologist. This report was verified electronically.
[2016-12-29] MEDS: LEVOFLOXACIN 500 MG PREMIX INJ 100 ML IV SCH (13:14)
[2016-12-29] MEDS ORDERED: CLON.1 PO (14:46)
[2016-12-29] MEDS ORDERED: METR-1 PO (14:46)
[2016-12-29] MEDS ORDERED: CARV3.125 PO (14:46)
[2016-12-29] MEDS ORDERED: FURO1TAB60 PO (14:46)
[2016-12-29] MEDS ORDERED: OXYC-392 PO (14:46)
[2016-12-29] MEDS ORDERED: LEVO500T8 PO (14:46)
[2016-12-29] MEDS ORDERED: LISI-519 PO (14:46)
--- NOTE | 2016-12-29 14:48 | HHI.DS ---
Discharge Summary Admission Date Dec 21, 2016 at 06:37 Discharge Date: Dec 29, 2016 Admitting Diagnosis Colitis, hypotension, alcohol intoxication (1) Colitis ICD Code: K52.9 Diagnosis: Principal (2) Alcoholism ICD Code: F10.20 Diagnosis: Principal Procedures none Brief History - From Admission Note: delayed note entry into EMR. patient seen and evaluated at 0700 this AM. This is a 56-year-old female who presented with a history of worsening chills, diarrhea, abdominal pain, shaking, tremors after she ran out of her Suboxone 2 days ago. She states she can't keep anything down. She does endorse having number of glasses of wine last night. Her alcohol level on admission is 319. She describes her abdominal pain is crampy, denies associated with food. Denies bright red blood per rectum, dark tarry stools, coughing up blood, vomiting of blood. She does endorse some nausea and vomiting. She endorses drinking at least 2 glasses of wine every day. She was brought in by EMS where her initial blood pressure was in the low 60s systolic. The patient was given 400 cc of normal saline where her blood pressure improved to 137/94. In the emergency department, she remained hemodynamic stable. CT of the abdomen and pelvis demonstrated question colitis. Although she endorse having diarrhea, she 's had no bowel movements while in the emergency department. I've out of the patient and she denied chest pain, shortness of breath, other associated symptoms. She did tell me that her abdominal pain and all of her symptoms feel exactly like what she feels like when she has alcohol and opiate withdrawal. She asked me if I can provide her with benzos and opiates to help with symptomatic relief. She does state that she has an appointment with an inpatient detox center to get her off these medications, and she is interested in going to the detox center straight from the hospital if possible. She denies fever, chills. She is remained afebrile with normal white count and the emergency department. Other laboratory values is notable for a lactate of 4. CBC/BMP: 12/28/16 0548 12/28/16 0548 Significant Findings Laboratory Tests Test 7/17/17 7/18/17 06:38 05:48 Red Blood Count 3.45 MIL/MM3 3.38 MIL/MM3 (4.00-5.30) (4.00-5.30) Mean Corpuscular Volume 106.4 FL 105.5 FL (80.0-100.0) (80.0-100.0) Mean Corpuscular Hemoglobin 35.3 PG 34.7 PG (27.0-34.0) (27.0-34.0) Monocytes (%) (Auto) 14.0 % (0.0-8.0) Lymphocytes # (Auto) 0.7 TH/MM3 (1.0-4.8) Blood Urea Nitrogen 3 MG/DL (-) 4 MG/DL (-) Creatinine 0.47 MG/DL (0.50-1.00) White Blood Count 3.8 TH/MM3 (4.0-11.0) Imaging Last Impressions Chest Ultrasound 12/29/16 0000 Signed Impressions: Service Date/Time: Thursday, December 29, 2016 08:16 - CONCLUSION: Small amount of fluid in the right pleural space estimated at 25 cc. Jairo Mackenzie MD Chest X-Ray 12/28/16 0600 Signed Impressions: Service Date/Time: Wednesday, December 28, 2016 05:13 - CONCLUSION: Interval develop of the pulmonary edema. Jamil Lee MD Lower Extremity Ultrasound 12/27/16 0000 Signed Impressions: Service Date/Time: Tuesday, December 27, 2016 13:16 - CONCLUSION: Normal examination. Efren Soto MD Abdomen Ultrasound 12/27/16 0000 Signed Impressions: Service Date/Time: Tuesday, December 27, 2016 20:28 - CONCLUSION: 1. Large right-sided pleural effusion. 2. Hepatomegaly. 3. Mild increased echotexture of the liver parenchyma can be seen with hepatic steatosis or hepatocellular disease. 4. Minimal sludge in the gallbladder dependent portion. Hermes Conn MD Myocardial Perfusion Scan Nuc Med 12/26/16 0000 Signed Impressions: Service Date/Time: Monday, December 26, 2016 12:50 - CONCLUSION: No appreciable ischemia. RISK CATEGORY: Low (<1%% Annual Mortality Rate) Radha Dumont MD Chest CT 12/23/16 7828 Signed Impressions: Service Date/Time: December 20:44 - CONCLUSION: Small bilateral pleural effusions and bibasilar consolidation worse on the right. Radha Dumont MD Abdomen/Pelvis CT 12/21/16 0422 Signed Impressions: Service Date/Time: Wednesday, December 21, 2016 05:42 - CONCLUSION: 1. Nonspecific mild long segment colitis. No abscess or obstruction. 2. Fatty liver. Van Mondragon MD PE at Discharge GENERAL: Laying on bed, appears comfortable CARDIOVASCULAR: Regular rate and regular rhythm without murmurs RESPIRATORY: Crackles noted on the right lower base. No wheezing GASTROINTESTINAL: Abdomen soft, hepatomegaly. Nontender at this time with deep palpation. slightly distended but no guarding. Normal, active bowel sounds MUSCULOSKELETAL: Extremities without edema. NEURO: Alert & Oriented x4 to person, place, time, situation. Moves all ext x4 Psych: Pleasant. Answers questions appropriately Hospital Course Severe dehydration with evidence of end-organ damage- resolved. Hypovolemic Shock- resolved. Hypoxia-- likely due to atelectasis vs pneumonia with fluid overload --required oxygen at first then was stable on RA. scripts for levaquin/flagyl/ lasix given -- echo showed EF of 4045 percent with apical hypokinesis --incentive spirometry, duo nebs --pulmonary following, chest CT showed small bilateral pleural effusions and bibasilar consolidation, ultrasound abdomen shows large right sided pleural effusion. however when chest u/s was performed no thoracentesis was necessary Alcohol withdrawal CM provided pt w outpatient detox program available in the community Opiate Withdraw/Polysubstance dependence -- oxycodone 5mg po q4h scheduled. f/u w detox program as above Possible colitis: improving. abdominal pain much improved on levaquin/flagyl bdominal ultrasound shows "Large right-sided pleural effusion. Hepatomegaly. Mild increased echotexture of the liver parenchyma can be seen with hepatic steatosis or hepatocellular disease. Minimal sludge in the gallbladder dependent portion" Pt Condition on Discharge: Stable Discharge Disposition: Discharge Home Discharge Time: > 30 minutes Discharge Instructions DIET: Follow Instructions for: Heart Healthy Diet Activities you can perform: Regular-No Restrictions Follow up Referrals: PCP Follow-up - 1 Week Referral - 2-3 Days New Medications: Furosemide (Lasix) 40 Mg Tab 40 MG PO DAILY #30 Ref 0 TAB Levofloxacin (Levofloxacin) 500 Mg Tablet 500 MG PO DAILY Infection #8 Ref 0 TAB Carvedilol (Coreg) 3.125 Mg Tab 3.125 MG PO Q12HR Days 30 TAB Clonidine (Catapres) 0.1 Mg Tab 0.1 MG PO Q8H Days 30 TAB Metronidazole (Flagyl) 500 Mg Tab 500 MG PO Q8HR Days 8 TAB Oxycodone (Oxycodone) 5 Mg Tab 10 MG PO Q6HR PRN PAIN SCALE 6 TO 10 #24 TAB Discontinued Medications: Lisinopril (Lisinopril) 20 Mg Tab 20 MG PO DAILY #30 Ref 0 TAB Rajni Aguilar MD Dec 29, 2016 14:48
--- NOTE | 2016-12-29 17:59 | HHI.PR ---
Subjective Remarks Alert and off O2 .Better today No chest pain. .CT shows basal effusions and infiltrates. Ultrasound of chest only showed a small effusion. No tap done Objective Vital Signs Date Time Temp Pulse Resp B/P Pulse Ox O2 Delivery O2 Flow Rate FiO2 12/29/16 16:27 108/76 12/29/16 16:00 98.4 73 18 88/60 91 12/29/16 12:00 97.6 80 17 121/88 93 12/29/16 10:13 94 21 12/29/16 08:00 97.8 76 17 120/86 91 12/29/16 04:13 98.7 78 16 119/86 92 12/29/16 00:10 98.8 87 17 110/78 94 12/28/16 20:37 96 21 12/28/16 20:00 98.7 86 16 121/88 93 I/O 12/28/16 12/28/16 12/28/16 12/29/16 12/29/16 12/29/16 07:00 15:00 23:00 07:00 15:00 23:00 Intake Total 340 ml 700 ml 480 ml 480 ml 760 ml Balance 340 ml 700 ml 480 ml 480 ml 760 ml Intake Oral 340 ml 700 ml 480 ml 480 ml 760 ml # Voids 2 4 5 3 3 # Bowel Movements 0 1 Result Diagram: 12/28/1654712/28/16 0548 Objective Remarks GENERAL: This is a thinly built, middle-aged white female who is alert and oriented, slightly pale. No clubbing, no peripheral edema or lymphadenopathy. HEENT: Head normocephalic. Pupils are reactive and equal. Tongue is dry. Throat is mildly injected. Ears - no inflammation. NECK: No bruits or thyroid enlargement. CHEST: Equal movements with decreased excursions. Breath sounds diminished over the bases with a few basilar crackles.Occ wheeze. HEART: Heart sounds are regular. S1, S2. No murmur. No S3. ABDOMEN: Abdomen is soft, protuberant without masses. No organomegaly or tenderness. The bowel sounds are active. EXTREMITIES: Decreased peripheral pulses. No calf tenderness. Reflexes are 1+. NEUROLOGIC: No gross motor or sensory deficits. Cranial nerves grossly intact. RECTAL: Exam is deferred. SKIN: No lesions. Assessment and Plan Assessment and Plan IMPRESSION 1. Bibasilar atelectasis with mild fluid overload. 2. Ethanolism. 3. History of hypertension. 4. Severe dehydration, resolved. 5. Right effusion, large 6. Bronchial reactivity. Plan : 1. No need for thoracentesis 2. D/C IV's. 3. Cont Lasix 20 mg PO daily. 4. Continue antibiotics for 5 days 5. D/C Nebs and add Ventolin HFa , 2 puffs tid prn 6. Home and OP F/U in 2 weeks . Will Rpt CXR in 2 weeks Ilda Clarke MD Dec 29, 2016 17:59
== END 2016-12-29 17:38 | disposition home or self-care (01) | DRG 391 ==
LOC: NEPC 03:53 → NEDA 06:37 → HIMW 10:00 → N06A 12-24 16:04
PROVIDERS: ADMIT Hospitalist; ATTEND Hospitalist
DX: K52.9 Noninfective gastroenteritis and colitis, unspecified (principal); R57.1 Hypovolemic shock; F10.231 Alcohol dependence with withdrawal delirium; J90 Pleural effusion, not elsewhere classified; E87.2 Acidosis; I95.9 Hypotension, unspecified; I42.9 Cardiomyopathy, unspecified; Q21.1 Atrial septal defect; F11.23 Opioid dependence with withdrawal; J98.11 Atelectasis; I10 Essential (primary) hypertension; Y90.8 Blood alcohol level of 240 mg/100 ml or more; F10.220 Alcohol dependence with intoxication, uncomplicated; F32.9 Major depressive disorder, single episode, unspecified; F41.9 Anxiety disorder, unspecified; E87.70 Fluid overload, unspecified; E87.6 Hypokalemia; D64.9 Anemia, unspecified; R09.02 Hypoxemia; M79.662 Pain in left lower leg
CPT/HCPCS: 36600; 51702; 71010; 71020; 71250; 74177; 76604; 76700; 78452; 80048; 80053; 80307; 81001; 82550; 82552; 82805; 82948; 83605; 83690; 83735; 83880; 84132; 84155; 84443; 84484; 84703; 85025; 85027; 85610; 85730; 86140; 87040; 87641; 93005; 93017; 93306; 93971; 94060; 94150; 94620; 94640; 94664; 94667; 94668; 96361; 96365; 96375; A9502; C9113; J0692; J1644; J1940; J1956; J2060; J2405; J2543; J2785; J3370; J3411; J3475; J3480; J7030; J7040; J7050; J7120; Q9967